=== PATIENT | female | born 1990 | race Caucasian/White ===

== ENCOUNTER 2020-06-29 07:53 | Outpatient (REF) | payer BC, SELFPAY ==
[2020-06-29 08:28] LABS: MANUAL DIFF FLAG NO
[2020-06-29 08:33] LABS: Glucose Urine UA NEG (NEG); Leukocyte Esterase Urine NEG (NEG); Nitrite Urine NEG (NEG); Urine Blood TRACE (NEG); Urine Ketones NEG (NEG); Urine Protein NEG (NEG-TRACE)
[2020-06-29 08:34] LABS: Appearance Urine HAZY; Color Urine YELLOW
[2020-06-29 08:39] LABS: Basophils Percent Auto 0.6 % (0-2); Eosinophils Absolute Auto 0.1 X10*3/uL (0.0-0.4); Eosinophils Percent Auto 2.7 % (0-4); Hematocrit 38.8 % (37-47); Hemoglobin 12.9 g/dl (12.0-16.0); Imm Gran Abs Auto 0.02 X10*3/uL (0.00-0.03); Imm Gran Pct Auto 0.4 % (0.0-0.4); Lymphocytes Absolute Auto 1.2 X10*3/uL (1.2-4.9); Lymphocytes Percent Auto 22.5 % (20-40); Mean Corpuscular HGB Conc 33.2 g/dl (31.0-35.0); Mean Corpuscular Hemoglobin 28.4 pg (27.0-33.0); Mean Corpuscular Volume 85.5 fL (80-98); Mean Platelet Volume 10.8 fL (9.4-12.3); Monocytes Absolute Auto 0.4 X10*3/uL (0.1-1.2); Monocytes Percent Auto 7.3 % (2-11); Neutrophils Absolute Auto 3.5 X10*3/uL (2.0-8.3); Neutrophils Percent Auto 66.5 % (45-73); Platelet Count 290 X10*3/uL (160-400); Red Blood Count 4.54 X10*6/uL (4.20-5.50); Red Cell Distribution Width 13.2 % (11.0-16.0); White Blood Count 5.2 X10*3/uL (4.8-10.8)
[2020-06-29 08:57] LABS: Squamous Epithelial Cell Urine 1+ /LPF; WBC Urine 0 /HPF (0-4)
[2020-06-29 09:33] LABS: Alanine Aminotransferase 11 U/L (0-31); Albumin Level 4.4 g/dL (3.5-5.0); Alkaline Phosphatase 84 U/L (39-117); Anion Gap 14 (12-20); Aspartate Amino Transferase 15 U/L (5-31); Bilirubin Total 0.4 mg/dL (0.0-1.0); Blood Urea Nitrogen 12 mg/dL (9-16); Calcium 9.1 mg/dL (8.4-10.2); Carbon Dioxide 24 mmol/L (22-29); Chloride 105 mmol/L (96-108); Cholesterol 206 mg/dL; Estimated Glomerular Filt Rate > 60; Glucose Fasting 87 mg/dL (60-99); HDL Cholesterol 47 mg/dL; LDL Cholesterol Calculated 144 mg/dl; Potassium 4.1 mmol/L (3.3-5.1); Sodium 139 mmol/L (135-145); TSH reflex Free T4 0.78 uIU/mL (0.32-4.0); Total Protein 7.4 g/dL (6.5-8.0); Triglycerides 77 mg/dL
[2020-06-29 11:40] LABS: Erythrocyte Sedimentation Rate 9 MM/HR (0-20)
== END 2020-06-29 07:54 | disposition home or self-care (01) ==
LOC: HO.LAB 07:53
PROVIDERS: PCP Internal Medicine; Visit Provider Internal Medicine
DX: Z00.00 Encounter for general adult medical examination without abnormal findings (principal); O99.345 Other mental disorders complicating the puerperium; G43.909 Migraine, unspecified, not intractable, without status migrainosus; F53.0 Postpartum depression
CPT/HCPCS: 36415; 80053; 80061; 81001; 84443; 85025; 85652

== ENCOUNTER 2020-07-20 12:48 | Outpatient (REF) | payer BC, SELFPAY | END 2020-07-20 12:49 | disposition home or self-care (01) | LOC: HO.LAB 12:48 | PROVIDERS: Visit Provider Internal Medicine | DX: Z20.822 Contact with and (suspected) exposure to COVID-19 (principal) | CPT/HCPCS: 36415; C9803; U0003; U0005 ==

== ENCOUNTER 2021-08-02 08:14 | Outpatient (REF) | payer BC, SELFPAY ==
[2021-08-02 08:38] LABS: MANUAL DIFF FLAG NO
[2021-08-02 08:55] LABS: Basophils Percent Auto 0.7 % (0-2); Eosinophils Absolute Auto 0.2 X10*3/uL (0.0-0.4); Eosinophils Percent Auto 3.8 % (0-4); Hematocrit 41.8 % (37.0-47.0); Hemoglobin 13.5 g/dl (12.0-16.0); Imm Gran Abs Auto 0.01 X10*3/uL (0.00-0.03); Imm Gran Pct Auto 0.2 % (0.0-0.4); Lymphocytes Absolute Auto 1.4 X10*3/uL (1.2-4.9); Lymphocytes Percent Auto 33.1 % (20-40); Mean Corpuscular HGB Conc 32.3 g/dl (31.0-35.0); Mean Corpuscular Hemoglobin 27.4 pg (27.0-33.0); Mean Platelet Volume 10.2 fL (9.4-12.3); Monocytes Absolute Auto 0.4 X10*3/uL (0.1-1.2); Monocytes Percent Auto 9.8 % (2-11); Neutrophils Absolute Auto 2.2 x10*3/uL (2.0-8.3); Neutrophils Percent Auto 52.4 % (45-73); Platelet Count 267 X10*3/uL (160-400); Red Blood Count 4.92 X10*6/uL (4.20-5.50); Red Cell Distribution Width 13.2 % (11.0-16.0); White Blood Count 4.2 X10*3/uL (4.8-10.8)
[2021-08-02 09:21] LABS: Alanine Aminotransferase 19 U/L (0-31); Albumin Level 4.5 g/dL (3.5-5.0); Alkaline Phosphatase 101 U/L (39-117); Anion Gap 11 (12-20); Aspartate Amino Transferase 20 U/L (5-31); Bilirubin Total 0.4 mg/dL (0.0-1.0); Blood Urea Nitrogen 11 mg/dL (9-16); Calcium 9.6 mg/dL (8.4-10.2); Carbon Dioxide 27 mmol/L (22-29); Chloride 105 mmol/L (96-108); Cholesterol 198 mg/dL; Estimated Glomerular Filt Rate > 60; Glucose Fasting 91 mg/dL (60-99); HDL Cholesterol 43 mg/dL; LDL Cholesterol Calculated 136 mg/dl; Potassium 4.6 mmol/L (3.3-5.1); Sodium 138 mmol/L (135-145); Total Protein 7.7 g/dL (6.5-8.0); Triglycerides 98 mg/dL
[2021-08-02 09:43] LABS: TSH reflex Free T4 1.38 uIU/mL (0.32-4.0); Vitamin D 25-OH Total 26.9 ng/mL (>30)
[2021-08-02 11:20] LABS: Appearance Urine HAZY; Color Urine YELLOW; Glucose Urine UA NEG (NEG); Leukocyte Esterase Urine NEG (NEG); Nitrite Urine NEG (NEG); PH 6.5 (5.0-8.0); UACC Culture Trigger NO; Urine Blood 2+ (NEG); Urine Ketones NEG (NEG); Urine Protein NEG (NEG-TRACE)
[2021-08-02 11:35] LABS: Bacteria Urine 3+ /LPF; Renal Epithelial Cells Urine 1+ /LPF; Squamous Epithelial Cell Urine 3+ /LPF
== END 2021-08-02 08:15 | disposition home or self-care (01) ==
LOC: HO.LAB 08:14
PROVIDERS: PCP Internal Medicine; Visit Provider Internal Medicine
DX: Z00.00 Encounter for general adult medical examination without abnormal findings (principal); E55.9 Vitamin D deficiency, unspecified
CPT/HCPCS: 36415; 80053; 80061; 81001; 81003; 82306; 84443; 85025

== ENCOUNTER 2022-12-16 08:11 | Outpatient (REF) | payer BC, SELFPAY ==
[2022-12-16 08:20] LABS: MANUAL DIFF FLAG NO
[2022-12-16 09:09] LABS: Basophils Percent Auto 0.6 % (0-2); Eosinophils Absolute Auto 0.2 X10*3/uL (0.0-0.4); Hematocrit 39.8 % (37.0-47.0); Hemoglobin 13.1 g/dl (12.0-16.0); Imm Gran Abs Auto 0.06 X10*3/uL (0.00-0.03); Lymphocytes Absolute Auto 1.5 X10*3/uL (1.2-4.9); Mean Corpuscular HGB Conc 32.9 g/dl (31.0-35.0); Mean Corpuscular Hemoglobin 27.5 pg (27.0-33.0); Mean Corpuscular Volume 83.6 fL (80.0-98.0); Mean Platelet Volume 10.3 fL (9.4-12.3); Monocytes Absolute Auto 0.5 X10*3/uL (0.1-1.2); Monocytes Percent Auto 7.1 % (2-11); Neutrophils Absolute Auto 4.1 x10*3/uL (2.0-8.3); Neutrophils Percent Auto 65.3 % (45-73); Platelet Count 308 X10*3/uL (160-400); Red Blood Count 4.76 X10*6/uL (4.20-5.50); Red Cell Distribution Width 13.9 % (11.0-16.0); White Blood Count 6.3 X10*3/uL (4.8-10.8)
[2022-12-16 09:11] LABS: Appearance Urine Cloudy; Color Urine Yellow; Glucose Urine UA Negative (Negative); Leukocyte Esterase Urine Negative (Negative); Nitrite Urine Negative (Negative); Specific Gravity - Urine >= 1.030 (1.005-1.025); Urine Blood Negative (Negative); Urine Ketones Trace mg/dL (Negative); Urine Protein Trace mg/dL (Neg-Trace)
[2022-12-16 09:42] LABS: Alanine Aminotransferase 19 U/L (0-31); Albumin Level 4.4 g/dL (3.5-5.0); Alkaline Phosphatase 86 U/L (39-117); Anion Gap 12 (12-20); Aspartate Amino Transferase 23 U/L (5-31); Bilirubin Total 0.4 mg/dL (0.0-1.0); Blood Urea Nitrogen 11 mg/dL (9-16); Calcium 9.4 mg/dL (8.4-10.2); Carbon Dioxide 26 mmol/L (22-29); Chloride 106 mmol/L (96-108); Cholesterol 272 mg/dL; Estimated Glomerular Filt Rate > 60; Glucose Fasting 85 mg/dL (60-99); HDL Cholesterol 54 mg/dL; LDL Cholesterol Calculated 189 mg/dl; Potassium 3.9 mmol/L (3.3-5.1); Sodium 140 mmol/L (135-145); Total Protein 7.9 g/dL (6.5-8.0); Triglycerides 146 mg/dL
[2022-12-16 10:02] LABS: TSH reflex Free T4 1.25 uIU/mL (0.32-4.0); Vitamin D 25-OH Total 32.5 ng/mL (>30)
== END 2022-12-16 08:12 | disposition home or self-care (01) ==
LOC: HO.LAB 08:11
PROVIDERS: PCP Internal Medicine; Visit Provider Internal Medicine
DX: Z00.00 Encounter for general adult medical examination without abnormal findings (principal); E78.00 Pure hypercholesterolemia, unspecified; E55.9 Vitamin D deficiency, unspecified; R30.0 Dysuria
CPT/HCPCS: 36415; 80053; 80061; 81003; 82306; 84443; 85025

== ENCOUNTER 2022-12-19 15:32 | Outpatient (AMB) | payer BC, SELFPAY ==
[2022-12-19 15:34] VITALS: BP 110/70; PULSE 78; O2SAT 98; BMI 25.2
--- NOTE | 2022-12-19 15:34 | MHC.PC.OV ---
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: No Accompanied by: Self / Same As Patient Allergies neomycin [From Neosporin ([id number])] Allergy (Unknown, Verified 02/27/23 08:04) Rash polymyxin B [From Neosporin ([id number])] Allergy (Unknown, Verified 02/27/23 08:04) Rash bacitracin Adverse Reaction (Unknown, Verified 02/27/23 08:04) rash Medication List - Last Reconciled 12/19/22 by Shimon Reeder MD [id number] (Emgality Pen) 120 mg subcut .monthly 3 months norethindrone ac-eth estradiol 1-20 mg-mcg 1 tab PO DAILY sertraline 150 mg (1.5 x 100 mg) PO DAILY 90 days zolmitriptan TAKE 1 TAB AT ONSET OF HEADACHE IF NO RELIEF, MAY REPEAT 1 TAB AFTER AT LEAST 2 HOURS 30 days Tobacco use date assessed: 12/19/22 Dental Screening Dental Screen Date: 12/19/22 Did you have a dental visit in the last 12 months?: Yes Did you have a dental problem in the last 6 months where you did not have access to dental care?: No Was dental information given to patient?: Patient has dentist HPI hyperlipidemia, insomnia HPI Details Patient comes in today for her follow up visit States that she feels okay but continues to report difficulty sleeping as well as increasing fatigue and daytime somnolence lately She denies any headaches or dizziness - states that her migraine headaches have been well-controlled on her current Rx so far Denies any chest pains, no SOB No nausea/vomiting, no abdominal pain No change in bowel habits noted Had her follow up labs done a few days ago - to discuss her results [facility] Medical History Anxiety Depression Migraine depression Pure hypercholesterolemia Vitamin D deficiency Surgical History History of wisdom tooth extraction Family History (Updated 02/27/23 @ 08:07 by Viviane Galaviz [facility]) Father Hyperlipidemia Hypertension Diabetes Mother Hypertension Maternal Grandfather No problems noted. Sister In good health Son In good health Brother In good health Maternal Grandmother Breast cancer Other Substance abuse Social History (Updated 02/27/23 @ 08:07 by Viviane Galaviz [facility]) Housing: Apartment Alcohol intake: current Alcohol intake frequency: holidays/special occasions only Patient Tobacco Use Status: Never used Tobacco e-Cigarette/Vaping Use: Never Used Second Hand Smoke Exposure: No service: No Current occupational status: employed Current occupation: [employer] Cognitive needs: No Hearing needs: No Vision needs: No Questionnaire PHQ-9 Over the last 2 weeks, how often have you been bothered by any of the following problems? 1. Little interest or pleasure in doing things: not at all 2. Feeling down, depressed, or hopeless: not at all 3. Trouble falling or staying asleep, or sleeping too much: not at all 4. Feeling tired or having little energy: not at all 5. Poor appetite or overeating: not at all 6. Feeling bad about yourself - or that you are a failure or have let yourself or your family down: not at all 7. Trouble concentrating on things, such as reading the newspaper or watching television: not at all 8. Moving or speaking so slowly that other people could have noticed. Or the opposite - being so fidgety or restless that you have been moving around a lot more than usual: not at all 9. Thoughts that you would be better off or of hurting yourself in some way: not at all Total score: 0 Depression Screening Interpretation: Negative (Rx helping) 79425 - PHQ-9 Billing: Yes Source: Developed by Drs. Juan Pak, Sanaz Foster, Sree Morley and colleagues, with an educational leo from [employer]. Thrive Questionnaire Date Thrive assessed: 12/19/22 I am a: Patient What is your living situation today?: I have a steady place to live Within the past 12 months, did the food you bought not last and you didn't have the money to get more?: Never true Within the past 12 months, did you worry whether your food would run out before you got money to buy more?: Never true Do you have trouble paying for medicines?: No Do you have trouble getting transportation to medical appointments?: No Do you have trouble paying your heating and electricity bill?: No Do you have trouble taking care of your child, family member or friend?: No Do you have trouble with day-to-day activities such as bathing, preparing meals, shopping, managing finances, etc.?: No Are you currently unemployed and looking for a job?: No Are you interested in more education?: No Please select the resources that you would like help with: None Currently or been in a relationship where the following occur: no concerns reported AUDIT C Alcohol Use Questionnaire (AUDIT-C) 1. How often do you have a drink containing alcohol?: Monthly or less 2. How many drinks containing alcohol do you have on a typical day when you are drinking?: 1 or 2 3. How often do you have six or more drinks on one occasion?: Never Total Score: 1 Score Reviewed/Action Taken: Yes FAN-7 AMB Questionnaire FAN-7 Date FAN - 7 assessed: 12/19/22 Feeling nervous, anxious, or on edge: 0 = Not at all Not being able to stop or control worryin = Not at all Worrying too much about different things: 0 = Not at all Trouble relaxin = Not at all Being so restless that it is hard to sit still: 0 = Not at all Becoming easily annoyed or irritable: 0 = Not at all Feeling afraid as if something awful might happen: 0 = Not at all Total FAN-7 score (0-4 normal; 5-9 mild; 10-14 moderate; 15-21 severe): 0 Source: Developed by Drs. Juan Pak, Sanaz Foster, Sree Morley and colleagues, with an educational leo from [employer]. Review of Systems Const Reports daytime sleepiness (frequent), Reports difficulty sleeping, Reports fatigue (increased lately), Denies fever(s) and Denies headache(s) (controlled on Rx) Eyes Denies blurry vision ENT Denies dysphagia, Denies dizziness, Denies otalgia, Denies headache(s) (controlled on Rx), Denies neck pain, Denies odynophagia and Denies sore throat Card Denies chest pain, Denies rapid heart rate, Denies irregular heart rhythm, Denies palpitations and Denies dyspnea Resp Denies chest congestion, Denies cough, Denies dyspnea and Denies wheezing GI Denies abdominal pain, Denies constipation, Denies dysphagia, Denies heartburn, Denies diarrhea, Denies nausea, Denies odynophagia and Denies vomiting Denies urinary frequency, Denies dysuria and Denies urinary urgency Musc Denies back pain, Denies arthralgias and Denies neck pain Skin/Breast Denies rash Neuro Denies dizziness, Denies headache(s) (controlled on Rx) and Denies paresthesias Psych Denies anxiety Endo Reports fatigue (increased lately) and Denies palpitations Aller/Immun Denies wheezing Physical exam (Primary Care) Vital Signs: Last Vital Signs Pulse 78 12/19/22 15:34 BP 110/70 12/19/22 15:34 Pulse Ox 98 12/19/22 15:34 Oxygen Delivery Method Room Air 12/19/22 15:34 BMI result Body Mass Index 25.2 Tobacco/Smoking Status: Tobacco use Status Tobacco use date assessed 12/19/22 12/19/22 15:40 Patient Tobacco Use Status Never used Tobacco 12/19/22 15:40 e-Cigarette/Vaping Use Never Used 12/19/22 15:40 PHQ-9: PHQ-9 Score PHQ-9: Total score 0 12/19/22 19:13 Depression Screening Interpretation: Negative (Rx helping) Thrive Assessment: Date of Thrive Assessment Date Thrive assessed 12/19/22 12/19/22 15:40 Currently or been in a relationship where the following occur: no concerns reported Const General: no acute distress and alert HENMT Ears: TM's normal bilaterally and EAC's normal Throat: Yes posterior oropharynx normal and Yes tonsils normal (no TP congestion) Neck Neck: Yes no lymphadenopathy and Yes supple Thyroid: Thyroid normal Resp Auscultation: clear to auscultation bilaterally, no rales and no wheezes Cardio Rate: regular rate Rhythm: regular rhythm Heart sounds: no murmurs GI Palpation (GI): Soft to palpation and nontender Auscultation: normal bowel sounds General: Yes no CVA tenderness Back/Spine/Pelvis Back: no CVA tenderness Thoracic/Lumbar Spine: thoracic and lumbar spine normal to inspection Skin Rashes: no rashes Extrem General: Yes no clubbing, cyanosis or edema Results Reviewed Results Reviewed: Laboratory Tests 08/02/21 12/16/22 12/16/22 08:37 06:20 08:16 WBC 6.3 Hgb 13.1 Hct 39.8 Plt Count 308 Sodium Potassium Creatinine Estimated GFR Fasting Glucose Calcium AST ALT Triglycerides Cholesterol 198 LDL Cholesterol, Calc 136 HDL Cholesterol 25-OH Vitamin D Total TSH Ur Specific [place] >= 1.030 H Urine Protein Trace Urine Glucose (UA) Negative Urine Blood Negative 12/16/22 08:16 WBC Hgb Hct Plt Count Sodium 140 Potassium 3.9 Creatinine 0.74 Estimated GFR > 60 Fasting Glucose 85 Calcium 9.4 AST 23 ALT 19 Triglycerides 146 Cholesterol 272 LDL Cholesterol, Calc 189 HDL Cholesterol 54 25-OH Vitamin D Total 32.5 TSH 1.25 Ur Specific [place] Urine Protein Urine Glucose (UA) Urine Blood Assessment and Plan Assessment & Plan (1) Pure hypercholesterolemia: Code(s): E78.00 - Pure hypercholesterolemia, unspecified Plan: Results of her labs done a few days ago reviewed and discussed with patient - cautioned that her cholesterol levels have increased again from last year and her LDL cholesterol is now at 189 mg/dl Reinforced low cholesterol diet; discussed option of pharmacotherapy to help get her cholesterol down if diet modification alone is not enough although her high cholesterol appears to be mostly diet-related Will recheck her labs and fasting lipids in 6 months for follow up (2) Migraine: Comment: Has been tried on prophylactic Rx in the past (Amitriptyline, beta blockers, nerve blocks) with little success; doing much better currently on Emgality Code(s): G43.909 - Migraine, unspecified, not intractable, without status migrainosus Qualifiers: Intractability: not intractable Migraine type: unspecified Status migrainosus presence: without status migrainosus Qualified Code(s): G43.909 - Migraine, unspecified, not intractable, without status migrainosus Plan: Has been doing well on Emgality for a while now - continue Emgality 120 mg SQ every 3 months and Zolmitriptan 5 mg PRN Reinforced avoidance of any potential migraine triggers (3) Vitamin D deficiency: Code(s): E55.9 - Vitamin D deficiency, unspecified Plan: Corrected on her recent labs - continue OTC Vitamin D3 1000 units QD (4) Daytime somnolence: Code(s): R40.0 - Somnolence Plan: Patient scored 11 on her [place] Sleepiness Scale done in the office today Will refer her to Sleep Medicine for further evaluation and management and for consideration for a sleep study if appropriate (5) Insomnia: Code(s): G47.00 - Insomnia, unspecified Qualifiers: Insomnia type: unspecified Qualified Code(s): G47.00 - Insomnia, unspecified Plan: Sleep hygiene reinforced Patient's trouble sleeping were previously thought to be mostly related to her child's sleeping problems and they did consult with a sleep specialist to help address this She still prefers not to take any Rx sleep aid for fear of being knocked out too much as she needs to be able to wake up to help or attend to her child when needed; has tried taking OTC Melatonin PRN with no significant results (6) Anxiety: Code(s): F41.9 - Anxiety disorder, unspecified Plan: Was doing well on Sertraline 150 mg QD previously although she has been off of this for a few months now after she self-discontinued the Rx on her own (7) Depression: Code(s): F32.A - Depression, unspecified Qualifiers: Depression Type: depression Qualified Code(s): O99.345 - Other mental disorders complicating the puerperium; F53.0 - depression Plan: (+) Hx of depression Was on Sertraline 150 mg QD but states that she self-discontinued Rx a few months ago and has been doing well OFF her Rx so far Plan Follow up in 6 months Orders: Orders Comprehensive [place]. Panel Fast 6 Months E78.00 - Pure hypercholesterolemia, unspecified Lipid Panel 6 Months E78.00 - Pure hypercholesterolemia, unspecified Referrals Sleep Medicine Referral R53.83 - Other fatigue, R40.0 - Somnolence Coding Level of Care Code Est Pt Level 4 (92618) Diagnoses Pure hypercholesterolemia E78.00 Migraine without status migrainosus, not intractable, unspecified migraine type G43.909 Intractability: not intractable Migraine type: unspecified Status migrainosus presence: without status migrainosus Vitamin D deficiency E55.9 Daytime somnolence R40.0 Insomnia, unspecified type G47.00 Insomnia type: unspecified Anxiety F41.9 depression O99.345; F53.0 Depression Type: depression
== END 2022-12-19 16:27 | disposition home or self-care (01) ==
PROVIDERS: PCP Internal Medicine; Visit Provider Internal Medicine
DX: E78.00 Pure hypercholesterolemia, unspecified (principal); G43.909 Migraine, unspecified, not intractable, without status migrainosus; E55.9 Vitamin D deficiency, unspecified; R40.0 Somnolence; G47.00 Insomnia, unspecified; F41.9 Anxiety disorder, unspecified; O99.345 Other mental disorders complicating the puerperium; F53.0 Postpartum depression
CPT/HCPCS: 99214

== ENCOUNTER 2023-02-27 08:01 | Outpatient (AMB) | payer BC, SELFPAY ==
--- NOTE | 2023-02-27 08:03 | MHC.OFFVIS ---
Intake Vital Signs 02/27/23 08:07 Height 5 ft 7 in Weight 162 lb BMI 25.4 BP 110/62 Blood Pressure Location Lt brachial Position Sitting Pulse 84 Pulse Source Pulse Oximeter Pulse Oximetry (%) 98 Intake Visit Reasons: INP-Fatigue/Somnolence - LVM Intake Note: NPV for Fatigue and Somlolence Educational Fundraising Director Required: No Allergies neomycin [From Neosporin ([id number])] Allergy (Unknown, Verified 02/27/23 08:04) Rash polymyxin B [From Neosporin ([id number])] Allergy (Unknown, Verified 02/27/23 08:04) Rash bacitracin Adverse Reaction (Unknown, Verified 02/27/23 08:04) rash HPI HPI Comments History of Present Illness Details 32 y/o female patient presents for new in-person visit for sleep consultation. Pt reports snoring, non refreshing sleep and daytime tiredness and sleepiness. She feels very tired and exhausted no matter how much sleep she gets. She almost sleeps 6-8 hrs at night, but wakes up frequently and tosses and turns. Pt reports family hx of sleep apnea, her sister and uncle has sleep apnea and uses CPAP. Sleep questionnaire: Have you ever been diagnosed with a sleep disorder? No. Have you ever had a sleep study in the past? No. Have you ever been treated for a sleep disorder? No. Do you take medications for a sleep disorder? No. Do you snore? Yes. Do you wake up gasping at night? No. Do you have episodes of apneas? No. If yes, are they witnessed? No. Do you have episodes of nocturnal chest pain or dyspnea? No. Do you have difficulty initiating sleep? On occasion. Do you have difficulty maintaining sleep? Wakes up a lot, tosses and turns. Do you wake up tired? Yes. Do you have headaches upon awakening? Yes, sometimes. Do you wake up with dry mouth or throat? Yes. Do you have GERD? Yes, sometimes. Do you have nocturia? Not really. Do you have nocturnal leg cramps? No. Do you have symptoms of restless legs? Yes, sometimes. Do you act out your dreams? Yes, occaisonally. Sleep hygiene questionnaire: What is your usual sleep routine? Usual bedtime is at 10-11 pm; Usual wake up time is at 6:15 am. Do you take naps? Yes, sometimes. Is your sleep environment cool, dark, and quiet? Yes. Do you exercise? No. Do you take caffeine or other stimulants? A cup of coffee or one energy drink. Do you use electronics in bed? Yes. What is your work schedule? 8 am to 4: 30 am. Hypersomnolence questionnaire: Do you have daytime tiredness or fatigue? Yes. Do you easily fall asleep when inactive? Yes. Have you ever had episodes of sudden weakness? No. Have you ever had episodes of sudden weakness associated with strong emotions? No. PFSH Medical History Anxiety Depression Migraine depression Pure hypercholesterolemia Vitamin D deficiency Surgical History History of wisdom tooth extraction Family History (Updated 02/27/23 @ 08:07 by Viviane Galaviz CMA) Father Hyperlipidemia Hypertension Diabetes Mother Hypertension Maternal Grandfather No problems noted. 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 Cognitive needs: No Hearing needs: No Vision needs: No Review of Systems Const All systems reviewed & are unremarkable except as noted in HPI and below ENT Reports Normal hearing present Neuro Reports Normal hearing present Physical Exam Vital Signs: Last Vital Signs Pulse 84 02/27/23 08:07 BP 110/62 02/27/23 08:07 Pulse Ox 98 02/27/23 08:07 BMI result Body Mass Index 25.4 Const General: cooperative Nutritional Appearance: overweight Orientation/consciousness: patient oriented x3 HEENT Throat: Yes other (mallampati grade 2) Neck Neck: Yes full ROM and Yes supple Resp Effort & Inspection: normal respiratory effort and able to speak in complete sentences Neuro General: patient oriented x3, gait normal and no focal motor deficits Cranial nerves: Yes Bilaterally intact EOM present, Yes Normal facial strength present, Yes Midline tongue present, Yes Symmetric palate elevation present, Yes Normal hearing present, Yes Ability to bilaterally rotate head present and Yes Ability to bilaterally elevate shoulders present Cognition (Neuro): normal cognition Gait exam (Neuro): Normal gait present Motor exam (neuro): 5/5 motor strength present throughout, Pronator motor function not present and no tremor noted Psych Appearance: grossly normal Mental Status: mental status grossly normal Speech and movement: Normal speech and movement present Affect: normal affect Attitude: cooperative Assessment & Plan Assessment & Plan (1) Snoring: Code(s): R06.83 - Snoring (2) Daytime somnolence: Code(s): R40.0 - Somnolence Plan Pt is advised to undergo home sleep study to assess for sleep apnea. Will f/u with pt after study to discuss results and appropriate treatment options. Sleep hygiene education provided, advised patient to limit electronic use before bedtime. Daily walking 3o min recommended. Pt to call with any worsening concerns or questions. Orders: Orders RT home sleep study Today R06.83 - Snoring, R40.0 - Somnolence Coding Level of Care Code New Pt Level 3 (35003) Diagnoses Snoring R06.83 Daytime somnolence R40.0
[2023-02-27 08:07] VITALS: BP 110/62; PULSE 84; O2SAT 98; BMI 25.4
== END 2023-02-27 08:32 | disposition home or self-care (01) ==
PROVIDERS: PCP Internal Medicine; Visit Provider Nurse Practitioner Family
DX: R06.83 Snoring (principal); R40.0 Somnolence
CPT/HCPCS: 99203

== ENCOUNTER → 2023-02-27 08:01 | Outpatient (BNVA) | payer BC, SELFPAY | PROVIDERS: PCP Internal Medicine; Visit Provider Nurse Practitioner Family ==

== ENCOUNTER → 2023-04-10 16:00 | Outpatient (REF) | payer BC, SELFPAY | LOC: HO.SL 16:00 | PROVIDERS: PCP Internal Medicine; Visit Provider Nurse Practitioner Family | DX: R06.83 Snoring (principal); R40.0 Somnolence | CPT/HCPCS: 95806 ==

== ENCOUNTER → 2023-04-10 16:00 | Outpatient (BNV) | payer BC, SELFPAY | PROVIDERS: PCP Internal Medicine; Visit Provider Psychiatry & Neurology Neurology | DX: R06.83 Snoring (principal) | CPT/HCPCS: 95806 ==

== ENCOUNTER 2023-06-08 08:16 | Outpatient (REF) | payer BC, SELFPAY ==
[2023-06-08 09:39] LABS: Alanine Aminotransferase 16 U/L (0-31); Albumin Level 4.4 g/dL (3.5-5.0); Alkaline Phosphatase 78 U/L (39-117); Anion Gap 13 (12-20); Aspartate Amino Transferase 17 U/L (5-31); Bilirubin Total 0.3 mg/dL (0.0-1.0); Blood Urea Nitrogen 9 mg/dL (9-16); Calcium 9.7 mg/dL (8.4-10.2); Carbon Dioxide 25 mmol/L (22-29); Chloride 106 mmol/L (96-108); Cholesterol 201 mg/dL (<200); Estimated Glomerular Filt Rate > 60; Glucose Fasting 93 mg/dL (60-99); HDL Cholesterol 44 mg/dL (>40); LDL Cholesterol Calculated 138 mg/dL (<100); Potassium 4.2 mmol/L (3.3-5.1); Sodium 140 mmol/L (135-145); Total Protein 7.6 g/dL (6.5-8.0); Triglycerides 96 mg/dL (<150)
== END 2023-06-08 08:17 | disposition home or self-care (01) ==
LOC: HO.LAB 08:16
PROVIDERS: PCP Internal Medicine; Visit Provider Internal Medicine
DX: E78.00 Pure hypercholesterolemia, unspecified (principal)
CPT/HCPCS: 36415; 80053; 80061

== ENCOUNTER 2023-06-21 08:52 | Outpatient (AMB) | payer BC, SELFPAY ==
--- NOTE | 2023-06-21 08:58 | MHC.PC.OV ---
Vital Signs 06/21/23 09:00 Height 5 ft 7 in Weight 158 lb 2 oz BMI 24.8 BP 116/70 Blood Pressure Location Lt brachial Position Sitting Pulse 83 Pulse Source Pulse Oximeter Pulse Oximetry (%) 97 Oxygen Delivery Method Room Air Intake Visit Reasons: 6 month f/u Manufacturing Technologist Required: No Accompanied by: Self / Same As Patient Allergies neomycin [From Neosporin ([id number])] Allergy (Unknown, Verified 06/21/23 09:10) Rash polymyxin B [From Neosporin ([id number])] Allergy (Unknown, Verified 06/21/23 09:10) Rash bacitracin Adverse Reaction (Unknown, Verified 06/21/23 09:10) rash Medication List - Last Reconciled 06/21/23 by Shimon Reeder MD [id number] (Emgality Pen) 120 mg subcut .monthly 3 months norethindrone ac-eth estradiol 1-20 mg-mcg 1 tab PO DAILY zolmitriptan TAKE 1 TAB AT ONSET OF HEADACHE IF NO RELIEF, MAY REPEAT 1 TAB AFTER AT LEAST 2 HOURS 30 days Tobacco use date assessed: 06/21/23 Dental Screening Dental Screen Date: 06/21/23 Did you have a dental visit in the last 12 months?: Yes Did you have a dental problem in the last 6 months where you did not have access to dental care?: No Was dental information given to patient?: Patient has dentist HPI 6 month f/u HPI Details Patient comes in today for her follow up visit States that she feels okay but has been experiencing a recurrent right-sided low back pain with radiation of the pain down her right thigh and also at times medially into the right groin/inguinal area for the past month or so States that the symptoms would also tend to flare up when she has been sitting for a while and she would then have to get up and move around and stretch her right leg to get comfortable She denies any recent injury or trauma to her lower back and right hip and relates (+) Hx of lower back injuries but recalls that she was told when she was a teenager that she may have some problems with her SI joint She denies any headaches or dizziness - states that her migraine headaches are well-controlled Denies any chest pains, no SOB No nausea/vomiting, no abdominal pain No change in bowel habits noted Had her follow up labs done a couple of weeks ago - to discuss her results [facility] Medical History Vitamin D deficiency Depression Anxiety Pure hypercholesterolemia depression Migraine Surgical History History of wisdom tooth extraction Family History Father Hyperlipidemia Hypertension Diabetes Mother Hypertension Maternal Grandfather No problems noted. Sister In good health Son In good health Brother In good health Maternal Grandmother Breast cancer Other Substance abuse Social History Housing: Apartment Alcohol intake: current Alcohol intake frequency: holidays/special occasions only Patient Tobacco Use Status: Never used Tobacco e-Cigarette/Vaping Use: Never Used Second Hand Smoke Exposure: No service: No Current occupational status: employed Current occupation: [employer] Cognitive needs: No Hearing needs: No Vision needs: No Questionnaire PHQ-9 Over the last 2 weeks, how often have you been bothered by any of the following problems? 1. Little interest or pleasure in doing things: not at all 2. Feeling down, depressed, or hopeless: not at all 3. Trouble falling or staying asleep, or sleeping too much: not at all 4. Feeling tired or having little energy: not at all 5. Poor appetite or overeating: not at all 6. Feeling bad about yourself - or that you are a failure or have let yourself or your family down: not at all 7. Trouble concentrating on things, such as reading the newspaper or watching television: not at all 8. Moving or speaking so slowly that other people could have noticed. Or the opposite - being so fidgety or restless that you have been moving around a lot more than usual: not at all 9. Thoughts that you would be better off or of hurting yourself in some way: not at all Total score: 0 Depression Screening Interpretation: Negative (is on Rx) Depression Screening Done: Yes 36960 - PHQ-9 Billing: Yes Source: Developed by Drs. Juan Pak, Sanaz B.Sree Marroquin and colleagues, with an educational leo from [employer]. Thrive Questionnaire Date Thrive assessed: 06/21/23 I am a: Patient What is your living situation today?: I have a steady place to live Within the past 12 months, did the food you bought not last and you didn't have the money to get more?: Never true Within the past 12 months, did you worry whether your food would run out before you got money to buy more?: Never true Do you have trouble paying for medicines?: No Do you have trouble getting transportation to medical appointments?: No Do you have trouble paying your heating and electricity bill?: No Do you have trouble taking care of your child, family member or friend?: No Do you have trouble with day-to-day activities such as bathing, preparing meals, shopping, managing finances, etc.?: No Are you currently unemployed and looking for a job?: No Are you interested in more education?: No Please select the resources that you would like help with: None Currently or been in a relationship where the following occur: no concerns reported THRIVE Score: 0 AUDIT C Alcohol Use Questionnaire (AUDIT-C) 1. How often do you have a drink containing alcohol?: Monthly or less 2. How many drinks containing alcohol do you have on a typical day when you are drinking?: 1 or 2 3. How often do you have six or more drinks on one occasion?: Never Total Score: 1 Score Reviewed/Action Taken: Yes FAN-7 AMB Questionnaire FAN-7 Date FAN - 7 assessed: 06/21/23 Feeling nervous, anxious, or on edge: 0 = Not at all Not being able to stop or control worryin = Not at all Worrying too much about different things: 0 = Not at all Trouble relaxin = Not at all Being so restless that it is hard to sit still: 0 = Not at all Becoming easily annoyed or irritable: 0 = Not at all Feeling afraid as if something awful might happen: 0 = Not at all Total FAN-7 score (0-4 normal; 5-9 mild; 10-14 moderate; 15-21 severe): 0 Source: Developed by Drs. Juan Pak, Sree Mills and colleagues, with an educational leo from [employer]. Review of Systems Const Denies chills, Denies fatigue, Denies fever(s) and Denies headache(s) ENT Denies dysphagia, Denies dizziness, Denies otalgia, Denies headache(s), Denies neck pain, Denies odynophagia and Denies sore throat Card Denies chest pain, Denies palpitations and Denies dyspnea Resp Denies cough and Denies dyspnea GI Denies abdominal pain, Denies constipation, Denies dysphagia, Denies heartburn, Denies diarrhea, Denies nausea, Denies odynophagia and Denies vomiting Denies difficulty voiding, Denies nocturia, Denies dysuria and Denies urinary urgency Musc Reports back pain (recurrent, over the right lower back for the past month), Denies neck pain and Reports radiating pain into limb (into the right thigh and medially into the right groin area) Skin/Breast Denies rash Neuro Denies dizziness and Denies headache(s) Endo Denies fatigue and Denies palpitations Physical exam (Primary Care) Vital Signs: Last Vital Signs Pulse 83 06/21/23 09:00 BP 116/70 06/21/23 09:00 Pulse Ox 97 06/21/23 09:00 Oxygen Delivery Method Room Air 06/21/23 09:00 BMI result Body Mass Index 24.8 Tobacco/Smoking Status: Tobacco use Status Tobacco use date assessed 06/21/23 06/21/23 09:05 Patient Tobacco Use Status Never used Tobacco 06/21/23 09:05 e-Cigarette/Vaping Use Never Used 06/21/23 09:05 PHQ-9: PHQ-9 Score PHQ-9: Total score 0 06/21/23 09:05 Depression Screening Interpretation: Negative (is on Rx) Thrive Assessment: Date of Thrive Assessment Date Thrive assessed 06/21/23 06/21/23 09:05 Currently or been in a relationship where the following occur: no concerns reported Const General: no acute distress and alert Neck Neck: Yes no lymphadenopathy and Yes supple Resp Auscultation: clear to auscultation bilaterally, no rales and no wheezes Cardio Rate: regular rate Rhythm: regular rhythm Heart sounds: no murmurs GI Palpation (GI): Soft to palpation and nontender Auscultation: normal bowel sounds General: Yes no CVA tenderness Back/Spine/Pelvis Back: no CVA tenderness Thoracic/Lumbar Spine: paraspinal muscle tenderness on the right in the lower lumbar (just at the upper border of the right iliac crest) and No lumbar spinal tenderness Sacroiliac joints: on the right by compression of iliac crest Skin Rashes: no rashes Extrem General: Yes no clubbing, cyanosis or edema Results Reviewed Results Reviewed: Laboratory Tests 12/16/22 12/16/22 12/16/22 08:16 08:16 08:16 Sodium Potassium Creatinine Estimated GFR Fasting Glucose Calcium AST ALT Triglycerides 146 Cholesterol 272 LDL Cholesterol, Calc 189 HDL Cholesterol 54 06/08/23 06/08/23 06/08/23 08:33 08:33 08:33 Sodium 140 Potassium 4.2 Creatinine 0.74 Estimated GFR > 60 Fasting Glucose 93 Calcium 9.7 AST 17 ALT Triglycerides Cholesterol 201 H LDL Cholesterol, Calc 138 H HDL Cholesterol 44 06/08/23 08:33 Sodium Potassium Creatinine Estimated GFR Fasting Glucose Calcium AST ALT 16 Triglycerides 96 Cholesterol LDL Cholesterol, Calc HDL Cholesterol Assessment and Plan Assessment & Plan (1) Pure hypercholesterolemia: Code(s): E78.00 - Pure hypercholesterolemia, unspecified Plan: Results of her labs done a couple of weeks ago reviewed and discussed with patient - advised that her cholesterol levels have all improved significantly from previous although they are still slightly high and need to improve further Reinforced low cholesterol diet Will recheck her labs and fasting lipids in 6 months for follow up (2) Migraine: Comment: Has been tried on prophylactic Rx in the past (Amitriptyline, beta blockers, nerve blocks) with little success; doing much better currently on Emgality Code(s): G43.909 - Migraine, unspecified, not intractable, without status migrainosus Qualifiers: Migraine type: unspecified Status migrainosus presence: without status migrainosus Intractability: not intractable Qualified Code(s): G43.909 - Migraine, unspecified, not intractable, without status migrainosus Plan: Her migraine headaches have been well-controlled on Emgality for a while now - continue Emgality 120 mg SQ every 3 months and Zolmitriptan 5 mg PRN Reinforced avoidance of any potential migraine triggers (3) Vitamin D deficiency: Code(s): E55.9 - Vitamin D deficiency, unspecified Plan: Continue OTC Vitamin D3 1000 units QD (4) Right-sided low back pain with right-sided sciatica: Code(s): M54.41 - Lumbago with sciatica, right side Qualifiers: Chronicity: acute Qualified Code(s): M54.41 - Lumbago with sciatica, right side Plan: Will send her for x-rays of the lumbar spine and SI joint for further evaluation Due to the presentation of her symptoms (pain radiating medially into the right inguinal area), will also send her for x-rays of the right hip She is advised that we will check back with her once the results of all her x-rays are available and if there are no significant findings on her x-rays, physical therapy would be the next logical recommendation to help her address her symptoms (5) Insomnia: Code(s): G47.00 - Insomnia, unspecified Qualifiers: Insomnia type: unspecified Qualified Code(s): G47.00 - Insomnia, unspecified Plan: Sleep hygiene reinforced (6) Anxiety: Code(s): F41.9 - Anxiety disorder, unspecified Plan: Was doing well on Sertraline 150 mg QD previously but she self-discontinued the Rx a while back and has been doing well OFF her Rx since - does not need any Rx or intervention at this time (7) Depression: Code(s): F32.A - Depression, unspecified Qualifiers: Depression Type: depression Qualified Code(s): O99.345 - Other mental disorders complicating the puerperium; F53.0 - depression Plan: (+) Hx of depression, which appears resolved now Was on Sertraline 150 mg QD but she self-discontinued Rx sometime last year and has been doing well OFF her Rx so far Plan To return in 6 months for her next annual physical examination Orders: Orders XR lumbar spine 2-3V Today M54.41 - Lumbago with sciatica, right side XR hip RT min 2V Today M25.551 - Pain in right hip Complete Blood Count Auto Diff 6 Months D64.9 - Anemia, unspecified, Z00.00 - Encounter for general adult medical examination without abnormal findings Lipid Panel 6 Months E78.00 - Pure hypercholesterolemia, unspecified, Z00.00 - Encounter for general adult medical examination without abnormal findings XR sacroiliac joint min 3V Today M54.41 - Lumbago with sciatica, right side Comprehensive Homer. Panel Fast 6 Months E78.00 - Pure hypercholesterolemia, unspecified, Z00.00 - Encounter for general adult medical examination without abnormal findings TSH reflex Free T4 6 Months E78.00 - Pure hypercholesterolemia, unspecified, Z00.00 - Encounter for general adult medical examination without abnormal findings UA CC w/rflx Micro + Cult 6 Months R30.0 - Dysuria, Z00.00 - Encounter for general adult medical examination without abnormal findings Vitamin D 25-OH Total 6 Months E55.9 - Vitamin D deficiency, unspecified, Z00.00 - Encounter for general adult medical examination without abnormal findings Coding Level of Care Code Est Pt Level 4 (54866) Diagnoses Pure hypercholesterolemia E78.00 Migraine without status migrainosus, not intractable, unspecified migraine type G43.909 Migraine type: unspecified Status migrainosus presence: without status migrainosus Intractability: not intractable Vitamin D deficiency E55.9 Acute right-sided low back pain with right-sided sciatica M54.41 Chronicity: acute Insomnia, unspecified type G47.00 Insomnia type: unspecified Anxiety F41.9 depression O99.345; F53.0 Depression Type: depression
[2023-06-21 09:00] VITALS: BP 116/70; PULSE 83; O2SAT 97; BMI 24.8
== END 2023-06-21 09:26 | disposition home or self-care (01) ==
PROVIDERS: PCP Internal Medicine; Visit Provider Internal Medicine
DX: E78.00 Pure hypercholesterolemia, unspecified (principal); G43.909 Migraine, unspecified, not intractable, without status migrainosus; E55.9 Vitamin D deficiency, unspecified; M54.41 Lumbago with sciatica, right side; G47.00 Insomnia, unspecified; F41.9 Anxiety disorder, unspecified; O99.345 Other mental disorders complicating the puerperium; F53.0 Postpartum depression
CPT/HCPCS: 99214

== ENCOUNTER 2023-06-26 08:19 | Outpatient (AMB) | payer BC, SELFPAY ==
--- NOTE | 2023-06-26 08:21 | MHC.OFFVIS ---
Intake Vital Signs 06/26/23 08:54 Height 5 ft 7 in Weight 157 lb 6 oz BMI 24.6 BP 115/64 Blood Pressure Location Rt brachial Position Sitting Pulse 74 Pulse Oximetry (%) 96 Oxygen Delivery Method Room Air Intake Visit Reasons: 4 mnts f/u- LVM Intake Note: Patient presents for 4 month f/u. Allergies neomycin [From Neosporin ([id number])] Allergy (Unknown, Verified 06/26/23 08:38) Rash polymyxin B [From Neosporin ([id number])] Allergy (Unknown, Verified 06/26/23 08:38) Rash bacitracin Adverse Reaction (Unknown, Verified 06/26/23 08:38) rash HPI HPI Comments History of Present Illness Details 32 y/o female patient presents for follow up of sleep study. The home sleep study result was mild degree of snoring. There is no evidence of sleep apnea. The AHI was less than 1/hr and oxygen allan was 89%. Pt reports she slept well during the sleep study. Pt reports she still has difficulty staying sleep and daytime sleepiness. She sleeps 6-8 hrs at night, but wakes up frequently and tosses and turns. [facility] Medical History Vitamin D deficiency Depression Anxiety Pure hypercholesterolemia depression Migraine Surgical History History of wisdom tooth extraction Family History Father Hyperlipidemia Hypertension Diabetes Mother Hypertension Maternal Grandfather No problems noted. 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 Cognitive needs: No Hearing needs: No Vision needs: No Review of Systems Const All systems reviewed & are unremarkable except as noted in HPI and below ENT Reports Normal hearing present Neuro Reports Normal hearing present Physical Exam Vital Signs: Last Vital Signs Pulse 74 06/26/23 08:54 BP 115/64 06/26/23 08:54 Pulse Ox 96 06/26/23 08:54 Oxygen Delivery Method Room Air 06/26/23 08:54 BMI result Body Mass Index 24.6 Const General: cooperative Nutritional Appearance: overweight Orientation/consciousness: patient oriented x3 HEENT Throat: Yes other (mallampati grade 2) Neck Neck: Yes full ROM and Yes supple Resp Effort & Inspection: normal respiratory effort and able to speak in complete sentences Neuro General: patient oriented x3, gait normal and no focal motor deficits Cranial nerves: Yes Bilaterally intact EOM present, Yes Normal facial strength present, Yes Midline tongue present, Yes Symmetric palate elevation present, Yes Normal hearing present, Yes Ability to bilaterally rotate head present and Yes Ability to bilaterally elevate shoulders present Cognition (Neuro): normal cognition Gait exam (Neuro): Normal gait present Motor exam (neuro): 5/5 motor strength present throughout, Pronator motor function not present and no tremor noted Psych Appearance: grossly normal Mental Status: mental status grossly normal Speech and movement: Normal speech and movement present Affect: normal affect Attitude: cooperative Assessment & Plan Assessment & Plan (1) Insomnia: Code(s): G47.00 - Insomnia, unspecified Qualifiers: Insomnia type: unspecified Qualified Code(s): G47.00 - Insomnia, unspecified (2) Daytime somnolence: Code(s): R40.0 - Somnolence Plan Sleep hygiene education provided. Advised patient to try Calm sleep gummy (magnesium and melatonin) and practice sleep hygiene. Pt wants to hold for in lab sleep study for further evaluation now, wants to try sleep hygiene and sleep supplement. She will call for follow up as needed. Coding Level of Care Code Est Pt Level 3 (04534) Diagnoses Insomnia, unspecified type G47.00 Insomnia type: unspecified Daytime somnolence R40.0
[2023-06-26 08:54] VITALS: BP 115/64; PULSE 74; O2SAT 96; BMI 24.6
== END 2023-06-26 09:40 | disposition home or self-care (01) ==
PROVIDERS: PCP Internal Medicine; Visit Provider Nurse Practitioner Family
DX: G47.00 Insomnia, unspecified (principal); R40.0 Somnolence
CPT/HCPCS: 99213

== ENCOUNTER → 2023-06-26 08:19 | Outpatient (BNVA) | payer BC, SELFPAY | PROVIDERS: PCP Internal Medicine; Visit Provider Nurse Practitioner Family ==

== ENCOUNTER 2023-07-04 07:50 | Outpatient (REF) | payer BC, SELFPAY ==
--- NOTE | ~2023-07-04 | XR_ITS ---
EXAMINATION: XR LUMBOSACRAL SPINE CLINICAL INFORMATION: Lumbago with sciatica COMPARISON: None available. TECHNIQUE: Three views of the lumbosacral spine. FINDINGS: The vertebral bodies and posterior elements are normal. The disc spaces are preserved and the vertebral alignment is normal. The paraspinal soft tissues are normal. XR/XR lumbar spine 2-3V IMPRESSION: Unremarkable examination.
--- NOTE | ~2023-07-04 | XR_ITS ---
EXAMINATION: XR HIP, RIGHT CLINICAL INFORMATION: Right hip pain COMPARISON: None available. TECHNIQUE: Two views of the right hip. FINDINGS: No fracture. Alignment is anatomic. Hip joint space is maintained. Soft tissues are unremarkable. XR/XR hip RT min 2V IMPRESSION: Normal right hip.
--- NOTE | ~2023-07-04 | XR_ITS ---
EXAMINATION: XR SACROILIAC JOINTS CLINICAL INFORMATION: Lumbago with sciatica on the right. COMPARISON: None available. TECHNIQUE: 3 views of the sacroiliac joints. FINDINGS: Some minimal sclerotic changes are seen in the left SI joint. Bones and soft tissues are otherwise normal. No fracture. Alignment is anatomic. Sacroiliac joint spaces are well-maintained without erosions or fusion. XR/XR sacroiliac joint min 3V IMPRESSION: Minimal sclerotic changes of the left SI joint.
== END 2023-07-04 07:51 | disposition home or self-care (01) ==
LOC: HO.XRAY 07:50
PROVIDERS: PCP Internal Medicine; Visit Provider Internal Medicine
DX: M54.41 Lumbago with sciatica, right side (principal); M25.551 Pain in right hip
CPT/HCPCS: 72100; 72202; 73502

== ENCOUNTER 2023-12-08 14:27 | Outpatient (AMB) | payer BC, SELFPAY ==
[2023-12-08 14:33] VITALS: BP 110/70; PULSE 74; TEMP 37.1; O2SAT 98; BMI 23.6
--- NOTE | 2023-12-08 14:33 | MHC.OFFWIV ---
Intake Vital Signs 12/08/23 14:33 Height 5 ft 7 in Weight 151 lb BMI 23.6 BP 110/70 Blood Pressure Location Rt brachial Position Sitting Pulse 74 Pulse Source Pulse Oximeter Temp 98.8 F Temp Source Oral Pulse Oximetry (%) 98 Intake Visit Reasons: EP ?allergic reaction eyes Intake Note: pt c/o itchy red eyes, watery discharge, has been ongoing for weeks Patient Tobacco Use Status: Never used Tobacco Allergies neomycin [From Neosporin ([id number])] Allergy (Unknown, Verified 12/08/23 14:33) Rash polymyxin B [From Neosporin ([id number])] Allergy (Unknown, Verified 12/08/23 14:33) Rash bacitracin Adverse Reaction (Unknown, Verified 12/08/23 14:33) rash Do you need a note to return to daycare/school/sports/work: No HPI HPI Comments History of Present Illness Details Patient is a 32-year-old female complaining of bilateral dry skin and itching on her eyes, she states that the left 1 was really puffy this morning and her vision was a little bit blurry but it has since gone down and her vision is back to normal. She states she has been using Aquaphor on the skin as well as cortisone cream but she is nervous about using to much of the cortisone cream. [facility] Medical History Vitamin D deficiency Depression Anxiety Pure hypercholesterolemia depression Migraine Surgical History History of wisdom tooth extraction Family History Father Hyperlipidemia Hypertension Diabetes Mother Hypertension Maternal Grandfather No problems noted. 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 Cognitive needs: No Hearing needs: No Vision needs: No Review of Systems Const All systems reviewed & are unremarkable except as noted in HPI and below Physical Exam Vital Signs: Last Vital Signs Temp 98.8 F 12/08/23 14:33 Pulse 74 12/08/23 14:33 BP 110/70 12/08/23 14:33 Pulse Ox 98 12/08/23 14:33 BMI result Body Mass Index 23.6 Const General: cooperative, healthy appearing, comfortable, no acute distress and well developed Orientation/consciousness: patient oriented x3 Limitations: no limitations Eyes Alignment and Position: alignment normal and position normal Periorbital: periorbital findings abnormal bilateral (Slight) periorbital swelling Eyelids: Yes eyelid abnormality (Scaly, slight erythema bilaterally) Conjunctivae: conjunctivae normal Sclerae: sclerae normal Pupils: Equal, round and reactive pupils present EOM: EOMs intact bilaterally Neuro General: patient oriented x3 Cranial nerves: Yes Equal, round and reactive pupils present Assessment & Plan Assessment & Plan (1) Allergic (intrinsic) eczema: Code(s): L20.84 - Intrinsic (allergic) eczema Plan: We will send referral to [facility], in the meanwhile recommended trying palatine drops as well as continuing Aquaphor and cortisone cream very sparingly. Plan see above Orders: Referrals Dermatology Referral L20.84 - Intrinsic (allergic) eczema Coding Level of Care Code Est Pt Level 3 (24696) Diagnoses Allergic (intrinsic) eczema L20.84
== END 2023-12-08 15:00 | disposition home or self-care (01) ==
PROVIDERS: PCP Internal Medicine; Visit Provider Physician Assistant
DX: L20.84 Intrinsic (allergic) eczema (principal)
CPT/HCPCS: 99213

== ENCOUNTER 2023-12-26 08:06 | Outpatient (AMB) | payer BC, SELFPAY ==
--- NOTE | 2023-12-26 08:07 | AM.OFFWIN_ITS ---
Intake Vital Signs 12/26/23 08:08 Height 5 ft 7 in Weight 152 lb BMI 23.8 BP 128/82 Blood Pressure Location Rt brachial Position Sitting Pulse 86 Pulse Source Pulse Oximeter Temp 98.9 F Temp Source Oral Pulse Oximetry (%) 98 Oxygen Delivery Method Room Air Intake Visit Reasons: EP UTI? Intake Note: pt c/o urinary urgency and discomfort, burning. Started yesterday Patient Tobacco Use Status: Never used Tobacco Allergies neomycin [From Neosporin ([id number])] Allergy (Unknown, Verified 12/26/23 08:08) Rash polymyxin B [From Neosporin ([id number])] Allergy (Unknown, Verified 12/26/23 08:08) Rash bacitracin Adverse Reaction (Unknown, Verified 12/26/23 08:08) rash Do you need a note to return to daycare/school/sports/work: No HPI HPI Comments History of Present Illness Details Patient is a 33-year-old female complaining of 2 days of increased frequency, urgency and burning with urination. She denies any fevers or acute low back pain. She does state she has chronic low back pain. She did state she saw a little bit of blood when she wiped yesterday but nothing since then. FORMERLY [facility], [facility] Medical History Vitamin D deficiency Depression Anxiety Pure hypercholesterolemia depression Migraine Surgical History History of wisdom tooth extraction Family History Father Hyperlipidemia Hypertension Diabetes Mother Hypertension Maternal Grandfather No problems noted. 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 Cognitive needs: No Hearing needs: No Vision needs: No Review of Systems Const All systems reviewed & are unremarkable except as noted in HPI and below Physical Exam Vital Signs: Last Vital Signs Temp 98.9 F 12/26/23 08:08 Pulse 86 12/26/23 08:08 BP 128/82 12/26/23 08:08 Pulse Ox 98 12/26/23 08:08 Oxygen Delivery Method Room Air 12/26/23 08:08 BMI result Body Mass Index 23.8 Const General: cooperative, healthy appearing, comfortable, no acute distress and well developed Orientation/consciousness: patient oriented x3 Limitations: no limitations HEENT Head: Yes normal to inspection Eyes General: appearance normal, both eyes and all related structures Neck Neck: Yes normal visual inspection and Yes full ROM Resp Effort & Inspection: normal respiratory effort and able to speak in complete sentences Skin General skin exam: no rashes or lesions noted Neuro General: patient oriented x3 Extrem General: Yes normal to inspection Results AMB Urinalysis, Automated UA Leukoctes 500 Gustavo/uL Last Edit by Alejandro Piper CMA on 12/26/23 08:18 UA Nitrite Negative Last Edit by Alejandro Piper CMA on 12/26/23 08:18 UA Urobilinogen 0.2 mg/dL Last Edit by Alejandro Piper CMA on 12/26/23 08:18 UA Protein 15 mg/dL Last Edit by Alejandro Piper CMA on 12/26/23 08:18 UA pH 7.0 Last Edit by Alejandro Piper CMA on 12/26/23 08:18 UA Blood 25 Gaurang/uL Last Edit by Alejandro Piper CMA on 12/26/23 08:18 UA Specific [place] 1.015 Last Edit by Alejandro Piper CMA on 12/26/23 08:18 UA Ketone Negative Last Edit by Alejandro Piper CMA on 12/26/23 08:18 UA Bilirubin 0 mg/dL Last Edit by Alejandro Piper CMA on 12/26/23 08:18 UA Glucose 0 mg/dL Last Edit by Alejandro Piper CMA on 12/26/23 08:18 Results Reviewed Results Reviewed: Laboratory Last Values Urine pH (Auto) 7.0 12/26/23 08:17 Specific [place] (Auto) 1.015 12/26/23 08:17 Urine Protein (Auto) 15 mg/dL 12/26/23 08:17 Glucose (UA)(Auto) 0 mg/dL 12/26/23 08:17 Urine Ketones (Auto) Negative 12/26/23 08:17 Urine Blood (Auto) 25 Gaurang/uL 12/26/23 08:17 Urine Nitrite (Auto) Negative 12/26/23 08:17 Urine Bilirubin (Auto) 0 mg/dL 12/26/23 08:17 Urine Urobilinogen (Auto) 0.2 mg/dL 12/26/23 08:17 Leukocyte Esterase (Auto) 500 Gustavo/uL 12/26/23 08:17 Assessment & Plan Assessment & Plan (1) UTI (urinary tract infection): Code(s): N39.0 - Urinary tract infection, site not specified Qualifiers: Urinary tract infection type: acute cystitis Hematuria presence: without hematuria Qualified Code(s): N30.00 - Acute cystitis without hematuria Plan: UA positive for leukocyte esterase 3+, blood 1+, negative nitrites, sent prescription to pharmacy Plan See above Orders: Orders AMB Urinalysis Automated Today Z13.9 - Encounter for screening, unspecified Medications: New cefuroxime axetil 500 mg PO Q12H 10 tabs 0RF Coding Level of Care Code Est Pt Level 3 (69597) Diagnoses Acute cystitis without hematuria N30.00 Urinary tract infection type: acute cystitis Hematuria presence: without hematuria
[2023-12-26 08:08] VITALS: BP 128/82; PULSE 86; TEMP 37.2; O2SAT 98; BMI 23.8
== END 2023-12-26 08:48 | disposition home or self-care (01) ==
PROVIDERS: PCP Internal Medicine; Visit Provider Physician Assistant
DX: Z13.9 Encounter for screening, unspecified (principal); N30.00 Acute cystitis without hematuria
CPT/HCPCS: 81003; 99213

== ENCOUNTER 2024-01-09 10:10 | Outpatient (AMB) | payer BC, SELFPAY ==
[2024-01-09 10:16] VITALS: BP 112/68; PULSE 79; O2SAT 99; BMI 23.7
--- NOTE | 2024-01-09 10:16 | A.OFFPC_ITS ---
Vital Signs 01/09/24 10:16 Height 5 ft 7 in Weight 151 lb 2 oz BMI 23.7 BP 112/68 Blood Pressure Location Lt brachial Position Sitting Pulse 79 Pulse Source Pulse Oximeter Pulse Oximetry (%) 99 Oxygen Delivery Method Room Air Intake Visit Reasons: ANNUAL Operations Analyst Required: No Accompanied by: Self / Same As Patient Allergies neomycin [From Neosporin ([id number])] Allergy (Unknown, Verified 01/09/24 10:54) Rash polymyxin B [From Neosporin ([id number])] Allergy (Unknown, Verified 01/09/24 10:54) Rash bacitracin Adverse Reaction (Unknown, Verified 01/09/24 10:54) rash Medication List - Last Reconciled 01/09/24 by Shimon Reeder MD zolmitriptan TAKE 1 TAB AT ONSET OF HEADACHE IF NO RELIEF, MAY REPEAT 1 TAB AFTER AT LEAST 2 HOURS 30 days Tobacco use date assessed: 01/09/24 Dental Screening Dental Screen Date: 01/09/24 Did you have a dental visit in the last 12 months?: Yes Did you have a dental problem in the last 6 months where you did not have access to dental care?: No Was dental information given to patient?: Patient has dentist HPI ANNUAL HPI Details Patient comes in today for her annual physical examination States that she feels okay Relates that she stopped taking her Emgality and her control Rx recently as she and her are now again trying to conceive She has not noticed any increase or changes in her headaches so far since she stopped taking Emgality She denies any dizziness Denies any chest pains, no SOB No nausea/vomiting, no abdominal pain No change in bowel habits noted She denies any acute urinary symptoms She still has trouble sleeping at night (wakes up frequently after a couple of hours of deep sleep) Was seen by sleep medicine and had a home sleep study done earlier this year that came back negative for SEFERINO States that she has since tried taking some OTC Melatonin a few times but did not find them helpful Adds that her previous complaint of recurrent right-sided low back pain that radiates into her right thigh has gotten a lot better lately although she still feels them every now and then She was sent for x-rays of the hip, lumbar spine and SI joints earlier this year and her x-rays have all come back normal She still goes to [facility] regularly for her annual gynecology exam and pap smear - states that she was last seen by them earlier this year but did not have to get a pap smear this year COUNT INCLUDES THE [facility] Medical History Vitamin D deficiency Depression Anxiety Pure hypercholesterolemia depression Migraine Surgical History History of wisdom tooth extraction Family History Father Hyperlipidemia Hypertension Diabetes Mother Hypertension Maternal Grandfather No problems noted. Sister In good health Son In good health Brother In good health Maternal Grandmother Breast cancer Other Substance abuse Social History Housing: Apartment Alcohol intake: current Alcohol intake frequency: holidays/special occasions only Patient Tobacco Use Status: Never used Tobacco e-Cigarette/Vaping Use: Never Used Second Hand Smoke Exposure: No service: No Current occupational status: employed Current occupation: [employer] Cognitive needs: No Hearing needs: No Vision needs: No Questionnaire PHQ-9 Over the last 2 weeks, how often have you been bothered by any of the following problems? 1. Little interest or pleasure in doing things: not at all 2. Feeling down, depressed, or hopeless: not at all 3. Trouble falling or staying asleep, or sleeping too much: not at all 4. Feeling tired or having little energy: several days 5. Poor appetite or overeating: not at all 6. Feeling bad about yourself - or that you are a failure or have let yourself or your family down: not at all 7. Trouble concentrating on things, such as reading the newspaper or watching t elevision: not at all 8. Moving or speaking so slowly that other people could have noticed. Or the opposite - being so fidgety or restless that you have been moving around a lot more than usual: not at all 9. Thoughts that you would be better off or of hurting yourself in some way: not at all Total score: 1 Depression Screening Interpretation: Negative Depression Screening Done: Yes 25742 - PHQ-9 Billing: Yes Source: Developed by Drs. Juan Pak, Sanaz Foster, Sree Morley and colleagues, with an educational leo from [employer]. Thrive Questionnaire Date Thrive assessed: 01/09/24 I am a: Patient What is your living situation today?: I have a steady place to live Within the past 12 months, did the food you bought not last and you didn't have the money to get more?: Never true Within the past 12 months, did you worry whether your food would run out before you got money to buy more?: Never true Do you have trouble paying for medicines?: No Do you have trouble getting transportation to medical appointments?: No Do you have trouble paying your heating and electricity bill?: No Do you have trouble taking care of your child, family member or friend?: No Do you have trouble with day-to-day activities such as bathing, preparing meals, shopping, managing finances, etc.?: No Are you currently unemployed and looking for a job?: No Are you interested in more education?: No Please select the resources that you would like help with: None Currently or been in a relationship where the following occur: No concerns reported THRIVE Score: 0 AUDIT C Alcohol Use Questionnaire (AUDIT-C) 1. How often do you have a drink containing alcohol?: Monthly or less 2. How many drinks containing alcohol do you have on a typical day when you are drinking?: 1 or 2 3. How often do you have six or more drinks on one occasion?: Never Total Score: 1 Score Reviewed/Action Taken: Yes FAN-7 AMB Questionnaire FAN-7 Date FAN - 7 assessed: 01/09/24 Feeling nervous, anxious, or on edge: 1 = Several days Not being able to stop or control worryin = Several days Worrying too much about different things: 1 = Several days Trouble relaxin = Several days Being so restless that it is hard to sit still: 0 = Not at all Becoming easily annoyed or irritable: 1 = Several days Feeling afraid as if something awful might happen: 0 = Not at all Total FAN-7 score (0-4 normal; 5-9 mild; 10-14 moderate; 15-21 severe): 5 Source: Developed by Sanaz [place] Kurt Kroenke and colleagues, with an educational leo from [employer]. Review of Systems Const Denies chills, Reports difficulty sleeping, Denies fatigue, Denies fever(s), Reports headache(s) (occasional (migraine) - better controlled) and Denies malaise Eyes Denies blurry vision, Denies change in vision, Denies irritation and Denies itchy eyes ENT Denies dysphagia, Denies dizziness, Denies otalgia, Reports headache(s) (occasional (migraine) - better controlled), Denies nasal congestion, Denies neck pain, Denies odynophagia, Denies sinus pain and Denies sore throat Card Denies chest pain, Denies rapid heart rate, Denies irregular heart rhythm, Denies palpitations and Denies dyspnea Resp Denies chest congestion, Denies cough, Denies dyspnea and Denies wheezing GI Denies abdominal pain, Denies bloating, Denies constipation, Denies dysphagia, Denies heartburn, Denies diarrhea, Denies nausea, Denies odynophagia and Denies vomiting Denies hematuria, Denies urinary frequency, Denies dysuria, Denies urinary incontinence and Denies urinary urgency Musc Reports back pain (occasionally - in the right lower back (see HPI)), Denies arthralgias, Denies joint swelling, Denies muscle weakness and Denies neck pain Skin/Breast Denies breast pain, Denies breast mass, Denies change in pigmentation, Denies lesions, Denies rash and Denies unusual bruising Neuro Denies dizziness, Reports headache(s) (occasional (migraine) - better controlled) and Denies paresthesias Psych Denies anxiety and Denies depression Endo Denies fatigue and Denies palpitations Jj/Lymph Denies easy bruising Aller/Immun Denies itchy eyes and Denies wheezing Physical exam (Primary Care) Vital Signs: Last Vital Signs Pulse 79 01/09/24 10:16 BP 112/68 01/09/24 10:16 Pulse Ox 99 01/09/24 10:16 Oxygen Delivery Method Room Air 01/09/24 10:16 BMI result Body Mass Index 23.7 Tobacco/Smoking Status: Tobacco use Status Tobacco use date assessed 01/09/24 01/09/24 10:20 Patient Tobacco Use Status Never used Tobacco 01/09/24 10:20 e-Cigarette/Vaping Use Never Used 01/09/24 10:20 PHQ-9: PHQ-9 Score PHQ-9: Total score 1 01/09/24 10:20 Depression Screening Interpretation: Negative Thrive Assessment: Date of Thrive Assessment Date Thrive assessed 01/09/24 01/09/24 10:20 Currently or been in a relationship where the following occur: No concerns reported Const General: no acute distress, alert and awake Orientation/consciousness: patient oriented x3 HENMT Head: Yes normocephalic and Yes atraumatic Ears: external ears normal, TM's normal bilaterally and EAC's normal General nose exam: No nasal discharge present Face and sinus: Yes normal facial exam and Yes sinuses nontender Teeth and gingiva: dentition normal Throat: Yes posterior oropharynx normal and Yes tonsils normal (no TP congestion) Eyes Eyelids: Yes eyelids normal Conjunctivae: conjunctivae normal Pupils: Equal, round and reactive pupils present EOM: EOMs intact bilaterally Neck Neck: Yes no lymphadenopathy and Yes supple Thyroid: Thyroid normal Resp Auscultation: clear to auscultation bilaterally, no rales and no wheezes Cardio Rate: regular rate Rhythm: regular rhythm Heart sounds: no murmurs GI Palpation (GI): Soft to palpation, nontender and No hepatosplenomegaly present Auscultation: normal bowel sounds General: Yes no CVA tenderness Back/Spine/Pelvis Back: no CVA tenderness Cervical Spine: No Cervical spine tenderness Thoracic/Lumbar Spine: paraspinal muscle tenderness (mild, over the right lower lumbar region) on the right, No thoracic spinal tenderness and No lumbar spinal tenderness Sacroiliac joints: bilaterally nontender Skin Lesions: no lesions Rashes: no rashes Neuro General: patient oriented x3, moves all extremities, no focal motor deficits and CN's II-XI intact bilaterally Cranial nerves: Yes Equal, round and reactive pupils present Cognition (Neuro): normal cognition Gait exam (Neuro): Normal gait present Extrem General: Yes no clubbing, cyanosis or edema Assessment and Plan Assessment & Plan (1) Annual physical exam: Code(s): Z00.00 - Encounter for general adult medical examination without abnormal findings Plan: Check labs She is currently up-to-date with her annual gynecology exam and pap smear (goes to [facility]) (2) Pure hypercholesterolemia: Code(s): E78.00 - Pure hypercholesterolemia, unspecified Plan: Reinforced low cholesterol diet She is advised that her cholesterol levels when last checked a few months ago have all improved slightly again from previous but they are still slightly high and need to improve further Will recheck her labs and fasting lipids now for follow up (3) Migraine: Comment: Has been tried on prophylactic Rx in the past (Amitriptyline, beta blockers, nerve blocks) with little success; doing much better currently on Emgality Code(s): G43.909 - Migraine, unspecified, not intractable, without status migrainosus Qualifiers: Migraine type: unspecified Status migrainosus presence: without status migrainosus Intractability: not intractable Qualified Code(s): G43.909 - Migraine, unspecified, not intractable, without status migrainosus Plan: Her migraine headaches have been well-controlled on Emgality 120 mg SQ Q 3 months for a while now but she had to come off her Rx recently as she and her are now trying to conceive again Notes that her headaches have not gotten any worse since she stopped taking her Emgality a while back Continue Zolmitriptan 5 mg PRN for now Have advised her that if she wants to, she can try taking some OTC Vitamin B2, which are sometimes being used by neurologists as well to help reduce frequency and intensity of migraine headaches and these can be taken even during if it works Reinforced again avoidance of any potential migraine triggers to help minimize flare ups of her headaches (4) Vitamin D deficiency: Code(s): E55.9 - Vitamin D deficiency, unspecified Plan: Continue OTC Vitamin D3 1000 units QD (5) Right-sided low back pain with right-sided sciatica: Code(s): M54.41 - Lumbago with sciatica, right side Qualifiers: Chronicity: acute Qualified Code(s): M54.41 - Lumbago with sciatica, right side Plan: X-rays of the lumbar spine, right hip and SI joints done a few months ago all came back mostly unremarkable Have discussed with patient that at this time, a likely cause of her on and off right lower back symptoms may be her posture as well as her daily activities Patient states that her symptoms have overall been a lot better than they were a few months ago Have advised that she can look up some exercises for her lower back and hips that she can do regularly to help manage her symptoms better Advised that if her symptoms continue to bother her a lot, can recommend her to get some physical therapy and consulation done then (6) Insomnia: Code(s): G47.00 - Insomnia, unspecified Qualifiers: Insomnia type: unspecified Qualified Code(s): G47.00 - Insomnia, unspecified Plan: Sleep hygiene reinforced States that she has taken OTC Melatonin a few times but did not find them helpful Have discussed with patient that at this point, her problems with sleeping may have something to do with the fact that she has a (small) child at home and s ubconsciously, she is not able to sleep too deeply (or too well) as she tends to wake up at the slightest noise that her child makes, and that other than taking something to help relax her (which she prefers not to do) there may not be much else we can do for her sleep at this time (until her kids are all grown up...) (7) Anxiety: Code(s): F41.9 - Anxiety disorder, unspecified Plan: She was doing well on Sertraline 150 mg QD previously but she self-discontinued the Rx a while back and feels that she has been doing well OFF her Rx since and does not need any Rx or intervention at this time (8) Depression: Code(s): F32.A - Depression, unspecified Qualifiers: Depression Type: depression Qualified Code(s): O99.345 - Other mental disorders complicating the puerperium; F53.0 - depression Plan: (+) Hx of depression, which appears resolved now She was on Sertraline 150 mg QD but she self-discontinued Rx sometime last year and has been doing well OFF her Rx so far Plan Follow up in 6 months Orders: Orders Lipid Panel Today E78.00 - Pure hypercholesterolemia, unspecified, Z00.00 - Encounter for general adult medical examination without abnormal findings Comprehensive [place]. Panel Fast Today E78.00 - Pure hypercholesterolemia, unspecified, Z00.00 - Encounter for general adult medical examination without abnormal findings TSH reflex Free T4 Today E78.00 - Pure hypercholesterolemia, unspecified, Z00.00 - Encounter for general adult medical examination without abnormal findings Vitamin D 25-OH Total Today E55.9 - Vitamin D deficiency, unspecified, Z00.00 - Encounter for general adult medical examination without abnormal findings Complete Blood Count Auto Diff Today D64.9 - Anemia, unspecified, Z00.00 - Encounter for general adult medical examination without abnormal findings UA CC w/rflx Micro + Cult Today R30.0 - Dysuria, Z00.00 - Encounter for general adult medical examination without abnormal findings Coding Level of Care Code Est Pt Prev Care [id number]([id number]) Diagnoses Annual physical exam Z00.00 Pure hypercholesterolemia E78.00 Migraine without status migrainosus, not intractable, unspecified migraine type G43.909 Migraine type: unspecified Status migrainosus presence: without status migrainosus Intractability: not intractable Vitamin D deficiency E55.9 Acute right-sided low back pain with right-sided sciatica M54.41 Chronicity: acute Insomnia, unspecified type G47.00 Insomnia type: unspecified Anxiety F41.9 depression O99.345; F53.0 Depression Type: depression
== END 2024-01-09 11:04 | disposition home or self-care (01) ==
PROVIDERS: PCP Internal Medicine; Visit Provider Internal Medicine
DX: Z00.00 Encounter for general adult medical examination without abnormal findings (principal); E78.00 Pure hypercholesterolemia, unspecified; G43.909 Migraine, unspecified, not intractable, without status migrainosus; E55.9 Vitamin D deficiency, unspecified; M54.41 Lumbago with sciatica, right side; G47.00 Insomnia, unspecified; F41.9 Anxiety disorder, unspecified; O99.345 Other mental disorders complicating the puerperium; F53.0 Postpartum depression
CPT/HCPCS: 99395

== ENCOUNTER 2024-03-13 08:03 | Outpatient (AMB) | payer BC, SELFPAY ==
[2024-03-13 08:21] VITALS: BP 120/70; PULSE 86; O2SAT 99
--- NOTE | 2024-03-13 08:21 | AM.OFFWIN_ITS ---
Intake Vital Signs 03/13/24 08:21 Height 5 ft 7 in BP 120/70 Blood Pressure Location Rt brachial Position Sitting Pulse 86 Pulse Source Pulse Oximeter Pulse Oximetry (%) 99 Oxygen Delivery Method Room Air Intake Visit Reasons: EP UTI? Intake Note: pt is here for UTI, states on and off feeling of urgency and unable to completely void Patient Tobacco Use Status: Never used Tobacco Allergies neomycin [From Neosporin ([id number])] Allergy (Unknown, Verified 03/13/24 08:22) Rash polymyxin B [From Neosporin ([id number])] Allergy (Unknown, Verified 03/13/24 08:22) Rash bacitracin Adverse Reaction (Unknown, Verified 03/13/24 08:22) rash Do you need a note to return to daycare/school/sports/work: No HPI HPI Comments History of Present Illness Details Patient is a 33-year-old female complaining of on and off feeling of urgency and unable to completely void, bladder pressure and a twinge at the end of urination. She denies any low back pain or fevers. She tells me that she is currently trying to get and she is in the window where they have tried but it is too early to test positive so she could be . She denies a history of kidney stones [facility] Medical History Vitamin D deficiency Depression Anxiety Pure hypercholesterolemia depression Migraine Surgical History History of wisdom tooth extraction Family History Father Hyperlipidemia Hypertension Diabetes Mother Hypertension Maternal Grandfather No problems noted. 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 Cognitive needs: No Hearing needs: No Vision needs: No Review of Systems Const All systems reviewed & are unremarkable except as noted in HPI and below Physical Exam Vital Signs: Last Vital Signs Pulse 86 03/13/24 08:21 BP 120/70 03/13/24 08:21 Pulse Ox 99 03/13/24 08:21 Oxygen Delivery Method Room Air 03/13/24 08:21 Const General: cooperative, healthy appearing, comfortable and no acute distress Orientation/consciousness: patient oriented x3 HEENT Head: Yes normal to inspection Ears: hearing grossly normal bilaterally General nose exam: Normal external nose present Face and sinus: Yes normal facial exam Neck Neck: Yes normal visual inspection, Yes trachea midline and Yes supple Resp Effort & Inspection: normal respiratory effort and able to speak in complete sentences General: Yes no CVA tenderness Back/Spine/Pelvis Back: no CVA tenderness Skin General skin exam: no rashes or lesions noted Neuro General: patient oriented x3 Psych Appearance: grossly normal Speech and movement: Normal speech and movement present Attitude: cooperative Thought process: Normal thought process present Insight: Good insight present (Psych) Judgement: Good judgement present (Psych) Assessment & Plan Assessment & Plan (1) UTI (urinary tract infection): Code(s): N39.0 - Urinary tract infection, site not specified Qualifiers: Urinary tract infection type: acute cystitis Hematuria presence: without hematuria Qualified Code(s): N30.00 - Acute cystitis without hematuria Plan: Urinalysis positive for leukocyte esterase, negative for nitrites and positive for blood. We will treat with cefuroxime. Plan see above Medications: New cefuroxime axetil 500 mg PO Q12H 10 tabs 0RF Coding Level of Care Code Est Pt Level 3 (23685) Diagnoses Acute cystitis without hematuria N30.00 Urinary tract infection type: acute cystitis Hematuria presence: without hematuria
== END 2024-03-13 08:30 | disposition home or self-care (01) ==
PROVIDERS: PCP Internal Medicine; Visit Provider Physician Assistant
DX: Z13.9 Encounter for screening, unspecified (principal); N30.00 Acute cystitis without hematuria

== ENCOUNTER → 2024-03-13 08:03 | Outpatient (BNVA) | payer BC, SELFPAY | PROVIDERS: PCP Internal Medicine; Visit Provider Physician Assistant | DX: N30.00 Acute cystitis without hematuria (principal) | CPT/HCPCS: 81003 ==

== ENCOUNTER 2024-06-25 08:26 | Outpatient (REF) | payer SELFPAY ==
[2024-06-25 08:39] LABS: MANUAL DIFF FLAG NO
--- OUTSIDE RECORDS SUMMARY | 2024-06-25 08:51 | XMS_ITS | Encounter Summary ---
Author Organization [facility] Address [address] [place] [address] Care Team Providers Care Dryer And Washer Mechanic Name Role Phone Nixon Maxwell MD Primary Care Provider Gerson Saleh NP Primary Care Provider +1- [phone] Reason for Visit * Reason Comments Medication Refill Encounter Details Date Type Department Care Team (Late st Contact Info) Description 10/09/2017 Refill [facility] [place] [address] [place], [place] [phone] Gregoria Graham PA [address] [place], [place] [phone] Common migraine with intractable migraine; Migraine without aura, with intractable migraine, so stated, with status migrainosus Social History Tobacco Use Types Packs/Day Years Used Date Smoking Tobacco: Never Smokeless Tobacco: Never Alcohol Use Standard Drinks/Week Comments Yes 0 (1 standard drink = 0.6 oz pur e alcohol) socially, few times per month Sex and Gender Information Value Date Recorded Sex Assigned at Not on file Gender Identity Not on file Sexual Orientation Not on file documented as of this encounter Plan of Treatment Not on file documented as of this encounter Visit Diagnoses Diagnosis Common migraine with intractable migraine Migraine without aura, with intractable migraine, so stated, without mention of status migrainosus Migraine without aura, with intractable migraine, so stated, with status migrainosus documented in this encounter Care Teams Dryer And Washer Mechanic Relationship Specialty Start Date End Date Nixon Maxwell MD PCP - General Family Medicine 11/05/15 07/15/18 Gerson Saleh NP [address] [place] [address] PCP - General 07/16/18 documented as of this encounter
--- OUTSIDE RECORDS SUMMARY | 2024-06-25 08:51 | XMS_ITS | Encounter Summary ---
Author Organization [facility] Address [address] [place] [address] Care Team Providers Care Appointment Coordinator Name Role Phone Nixon Maxwell MD Primary Care Provider Gerson Saleh NP Primary Care Provider +1- [phone] Encounter Details Date Type Department Care Team (Late st Contact Info) Description 10/11/[address] [facility] [address] [place] [address] Gregoria Graham PA [address] [place], [place] [phone] Social History Tobacco Use Types Packs/Day Years [...] documented as of this encounter Visit Diagnoses Not on filedocumented in this encounter Care Teams Appointment Coordinator Relationship Specialty Start Date End Date Nixon Maxwell MD PCP - General Family Medicine 11/05/15 07/15/18 Gerson Saleh NP [address] [place] [address] PCP - General 07/16/18 documented as of this encounter
--- OUTSIDE RECORDS SUMMARY | 2024-06-25 08:51 | XMS_ITS | Encounter Summary ---
Author Organization [facility] Address [address] [place] [address] Care Team Providers Care Behavioral Therapy Coordinator Name Role Phone Nixon Maxwell MD Primary Care Provider Gerson Saleh NP Primary Care Provider +1- [phone] Encounter Details Date Type Department Care Team (Late st Contact Info) Description 03/02/2018 Scanned Document [facility] [address] [place] [address] Gregoria Graham PA [address] [place] [address] Social History Tobacco Use Types Packs/Day Years Used Date Smoking Tobacco: Never Smokeless Tobacco: Never Alcohol Use Standard Drinks/Week Comments Yes 0 (1 standard drink = 0.6 oz pur e alcohol) 1-2 TIMES PER MONTH 1-2 DRINKS Sex and Gender Information Value Date Recorded Sex Assigned at Not on file Gender Identity Not on file Sexual Orientation Not on file documented as of this encounter Plan of Treatment Not on file documented as of this encounter Visit Diagnoses Not on filedocumented in this encounter Care Teams Behavioral Therapy Coordinator Relationship Specialty Start Date End Date Nixon Maxwell MD PCP - General Family Medicine 11/05/15 07/15/18 Gerson Saleh NP [address] [place] [address] PCP - General 07/16/18 documented as of this encounter
--- OUTSIDE RECORDS SUMMARY | 2024-06-25 08:51 | XMS_ITS | Encounter Summary ---
Author Organization [facility] Address [address] [place] [address] Care Team Providers Care Supervisor Photocomposition Name Role Phone Nixon Maxwell MD Primary Care Provider +1 [phone] Gerson Saleh NP Primary Care Provider +1- [phone] Encounter Details Date Type Department Care Team (Late st Contact Info) Description 03/03/2017 Scanned Document [address] [place] [address] Kathleen Asif APRN Social History Tobacco Use Types Packs/Day Years Used Date Smoking Tobacco: Never Smokeless Tobacco: Never Alcohol Use Standard Drinks/Week Comments Yes 0 (1 standard drink = 0.6 oz pur e alcohol) socially Sex and Gender Information Value Date Recorded Sex Assigned at Not on file Gender Identity Not on file Sexual Orientation Not on file documented as of this encounter Plan of Treatment Not on file documented as of this encounter Visit Diagnoses Not on filedocumented in this encounter Care Teams Supervisor Photocomposition Relationship Specialty Start Date End Date Nixon Maxwell MD PCP - General Family Medicine 11/05/15 07/15/18 Gerson Saleh NP [address] [place] [address] PCP - General 07/16/18 documented as of this encounter
--- OUTSIDE RECORDS SUMMARY | 2024-06-25 08:51 | XMS_ITS | Encounter Summary ---
Author Organization [facility] Address [address] [place] [address] Care Team Providers Care It Solutions Sales Consultant Name Role Phone Nixon Maxwell MD Primary Care Provider Gerson Saleh NP Primary Care Provider +1- [phone] Encounter Details Date Type Department Care Team (Late st Contact Info) Description 06/18/2018 Scanned Document [facility] [place] [facility] [address] [place] [address] Gregoria Graham PA [address] [place] [address] Social History Tobacco Use Types Packs/Day Years [...] on filedocumented in this encounter Care Teams It Solutions Sales Consultant Relationship Specialty Start Date End Date Nixon Maxwell MD PCP - General Family Medicine 11/05/15 07/15/18 Gerson Saleh NP [address] [place] [address] PCP - General 07/16/18 documented as of this encounter
--- OUTSIDE RECORDS SUMMARY | 2024-06-25 08:51 | XMS_ITS | Encounter Summary ---
Author Organization [facility] Address [address] [place] [address] Care Team Providers Care Model Builder Display Name Role Phone Nixon Maxwell MD Primary Care Provider Gerson Saleh NP Primary Care Provider +1- [phone] Reason for Visit * Reason Comments Medication Refill Encounter Details Date Type Department Care Team (Late st Contact Info) Description 11/06/2017 Refill [facility] [address] [place], [place] [phone] Gregoria Graham PA [address] [place], [place] [phone] Migraine without aura, with intractable migraine, so [...] on file documented as of this encounter Miscellaneous Notes * Telephone Encounter - Cinthia Carbajal LPN - 11/06/2017 3:28 PM EDT Patient prescription was changed to Zolmitriptan and refilled on 10.10.17 with 2 additional refills. documented in this encounter Plan of Treatment Not on file documented as of this encounter Visit Diagnoses Diagnosis Migraine without aura, with intractable migraine, so stated, with status migrainosus documented in this encounter Care Teams Model Builder Display Relationship Specialty Start Date End Date Nixon Maxwell MD PCP - General Family Medicine 11/05/15 07/15/18 Gerson Saleh NP [address] [place] [address] PCP - General 07/16/18 documented as of this encounter
--- OUTSIDE RECORDS SUMMARY | 2024-06-25 08:51 | XMS_ITS | Encounter Summary ---
Author Organization [facility] Address [address] [place] [address] Care Team Providers Care Clay Miller Name Role Phone Nixon Maxwell MD Primary Care Provider +1 -[phone] Gerson Saleh NP Primary Care Provider +1- [phone] Encounter Details Date Type Department Care Team (Late st Contact Info) Description 01/24/2017 Scanned Document [facility] - [address] [place], [place] [phone] Kathleen Jesus MA [address] [place] [address] Social History Tobacco Use Types Packs/Day Years [...] on filedocumented in this encounter Care Teams Clay Miller Relationship Specialty Start Date End Date Nixon Maxwell MD PCP - General Family Medicine 11/05/15 07/15/18 Gerson Saleh NP [address] [place] [address] PCP - General 07/16/18 documented as of this encounter
--- OUTSIDE RECORDS SUMMARY | 2024-06-25 08:51 | XMS_ITS | Encounter Summary ---
Author Organization [facility] Address [address] [place] [address] Care Team Providers Care Necktie Stitcher Name Role Phone Nixon Maxwell MD Primary Care Provider [phone] -[phone] Gerson Saleh NP Primary Care Provider +1- [phone] Reason for Visit * Reason Comments Medication Refill Encounter Details Date Type Department Care Team (Late st Contact Info) Description 09/07/[address] [address] Gregg Mcfarland MD [address] [place] [address] Social History Tobacco Use Types Packs/Day Years Used Date Smoking Tobacco: Never Alcohol Use Standard Drinks/Week Comments Not Asked 0 (1 standard drink = 0.6 oz pur e alcohol) Sex and Gender Information Value Date Recorded Sex Assigned at Not on file Gender Identity Not on file Sexual Orientation Not on file documented as of this encounter Plan of Treatment Not on file documented as of this encounter Visit Diagnoses Not on filedocumented in this encounter Care Teams Necktie Stitcher Relationship Specialty Start Date End Date Nixon Maxwell MD PCP - General Family Medicine 11/05/15 07/15/18 Gerson Saleh NP [address] [place] [address] PCP - General 07/16/18 documented as of this encounter
--- OUTSIDE RECORDS SUMMARY | 2024-06-25 08:51 | XMS_ITS | Encounter Summary ---
Author Organization [facility] Address [address] [place] [address] Care Team Providers Care Urologic Surgeon Name Role Phone Nixon Maxwell MD Primary Care Provider +1 -[phone] Gerson Saleh NP Primary Care Provider +1- [phone] Encounter Details Date Type Department Care Team (Late st Contact Info) Description 12/22/2016 Scanned Document [facility] - [address] [place], [place] [phone] Kathleen Jesus MA [address] [place] [address] Social History Tobacco Use Types Packs/Day Years [...] on filedocumented in this encounter Care Teams Urologic Surgeon Relationship Specialty Start Date End Date Nixon Maxwell MD PCP - General Family Medicine 11/05/15 07/15/18 Gerson Saleh NP [address] [place] [address] PCP - General 07/16/18 documented as of this encounter
--- OUTSIDE RECORDS SUMMARY | 2024-06-25 08:51 | XMS_ITS | Encounter Summary ---
Author Organization [facility] Address [address] [place] [address] Care Team Providers Care Mold Capper Helper Name Role Phone Nixon Maxwell MD Primary Care Provider Gerson Saleh NP Primary Care Provider +1- [phone] Encounter Details Date Type Department Care Team (Late st Contact Info) Description 11/28/2017 [place] [address] Gregoria Graham PA [address] [place] [address] [address] [place] [address] Social History Tobacco Use Types Packs/Day Years [...] on filedocumented in this encounter Care Teams Mold Capper Helper Relationship Specialty Start Date End Date Nixon Maxwell MD PCP - General Family Medicine 11/05/15 07/15/18 Gerson Saleh NP [address] [place] [address] PCP - General 07/16/18 documented as of this encounter
--- OUTSIDE RECORDS SUMMARY | 2024-06-25 08:51 | XMS_ITS | Data Portability ---
Author Organization [facility] Address [address] [place] [address] Assessment No assessment recorded. Plan of Treatment Reminders Order Date Submit Date Provider Last Modified By Organization Details Last Modified Time Details Appointments None recorded . Lab None recorded . Referral None recorded . Procedures None recorded . Surgeries None recorded . Imaging /S breast right - breast pain 015 02/14/20 15 [email or web address] [facility] (Radiology), [address] [place] [address], [address], 5 09:16:31 Medication Orders None recorded . Patient TargetsNo targets recorded. Patient Instructions Encounter Date Encounter Id Patient Instructions Last Modified By Organization Details Last Modified Time 02/13/2015 [id number] may take motrin for breast pain, pain may be cyclical/hormona l: ? ? ?would recommend repeat exam at time of pap next month and review us report at that time [email or web address] Not available 02/13/2015 14:46:06 Reason for Referral None Reported. Problems Name Problem SNOMED Code Status Onset Date Resolution Date Notes Provider Name and Address Organization Details Recorded Time Pain of breast 66727648 Active ODALIS BARROW MD [address] [facility] [place], [address] , [facility] 02/13/2015 14:46:06 Problem Notes None recorded. Procedures Surgical History Date Name Laterality Status Provider Name and Address Organization Details Recorded Time 10/20/2014 LEEP completed ODALIS BARROW MD [address] [facility] [place], [address], [facility] 02/01/2015 18:50:46 Imaging Results None recorded. Procedure Notes None recorded. Medical Equipment None Reported. Allergies Allergen ID Allergen Name Allergen Category Reaction Reaction Severity Criticality Documentation Date Start Date Code Code System Note Provider Name and Address Organization Details Recorded Time 410168 neomycin medicatio n Not available Not available Not available 02/01/2015 7299 RxNorm ODALIS Chairez MD [address] [facility] Floor, [place], [address] [place] [address] 5 18:50:46 Medications Name Sig Start Date Stop Date Status Note LastModified by Organization Details LastModified Time Proctosol HC 2.5 % rectal cream with applicator active Not Available Not Available N ot Available rizatriptan 10 mg tablet active Not Available Not Available No t Available valacyclovir 500 mg tablet active Not Available Not Availabl e Not Available ciprofloxacin 500 mg tablet active Not Available Not Availabl e Not Available amitriptyline 50 mg tablet active Not Available Not Available Not Available hyoscyamine 0.125 mg sublingual tablet active Not Available Not Available Not Available ampicillin 250 mg capsule active Not Available Not Available N ot Available polyethylene glycol 3350 17 gram/dose oral powder active Not Available Not Available Not Available Minastrin 24 Fe 1 mg-20 mcg (24)/75 mg (4) chewable tablet active Not Available Not Availa ble Not Available Vitals Date Recorded Body height Body mass index (BMI) Body weight Systolic blood pressure Diastolic blood pressure Provider Name and Address Organization Details Last Updated DateTime 02/13/2015 167.64 cm 20.7 kg/m2 98112.82 336 g 100 mm[Hg] 60 mm[Hg] Yaneth Reddy [facility] 5 14:24:06 Social History Question Answer Notes LastModified by Organizat ion Details LastModified Time What Is Your Level Of Alcohol Consumption? Occasional Information not available 02/01/2015 Drug Use? No Information n ot available 02/01/2015 Sex: Unknown Functional Status None recorded. Mental Status None recorded. Family History Relationship Description Onset Age of this Age Resolved Age Notes LastModified by Organization Details LastModified Time Mother Hypertensive disorder [email or web address] Not available 07/2014 18:50:46 Unspecified Relation Hypertensive disorder [email or web address] Not available 07/2014 18:50:46 Father Diabetes mellitus [email or web address] Not available 07/2014 18:50:46 Maternal Grandmother Malignant tumor of breast [email or web address] Not available 07/2014 18:50:46 Medical History Condition Response Headaches/Migraines Y Gynecological History Statement/Question Response Current Control Method BCPs Obstetrics History GPAL:G 0 P 0 0 0 0 Past Encounters Encounter ID Performer Location Encounter Start Date Encounter Closed Date Diagnosis/Indication Diagnosis SNOMED-CT Code Diagnosis ICD10 Code Diagnosis Note [id number] [facility] [address] [place] [address] [place], [place] [address] 02/13/2015 14:19:09 02/13/2015 14:47:41 Pain of breast 63735714 N64.4 Health Concerns Section Related Observation LastModified by Organization Detai ls LastModified Time None Recorded Concern Status LastModified by Organization Details LastModified Time None Recorded Advance Directives Directive None Recorded Payers Encounter Date Sequence Insurance Name Policy Number Policy Bell Covered Member ID Bell Member ID Guarantor Name 02/13/2015 1 [place] [id number] Tracey Gold [id number] Tracey Contreras OBGyn Episode No OBEpisode recorded.
--- OUTSIDE RECORDS SUMMARY | 2024-06-25 08:51 | XMS_ITS | Encounter Summary ---
Author Organization [facility] Address [address] [place] [address] Care Team Providers Care Mapping Technician Name Role Phone Nixon Maxwell MD Primary Care Provider [phone] -[phone] Gerson Saleh NP Primary Care Provider +- [phone] Encounter Details Date Type Department Care Team (Late st Contact Info) Description 03/14/2017 [place] [address] Kathleen Jesus MA [address] [place] [address] Social History Tobacco Use Types Packs/Day Years [...] on filedocumented in this encounter Care Teams Mapping Technician Relationship Specialty Start Date End Date Nixon Maxwell MD PCP - General Family Medicine 11/05/15 07/15/18 Gerson Saleh NP [address] [place] [address] PCP - General 07/16/18 documented as of this encounter
--- OUTSIDE RECORDS SUMMARY | 2024-06-25 08:51 | XMS_ITS | Encounter Summary ---
Author Organization [facility] Address [address] [place] [address] Care Team Providers Care Educational Psychologist Name Role Phone Nixon Maxwell MD Primary Care Provider +1 [phone] Gerson Saleh NP Primary Care Provider +1- [phone] Encounter Details Date Type Department Care Team (Late st Contact Info) Description 09/15/2017 Scanned Document [facility] [address] [place] [address] Gregoria Graham PA [address] [place], [place] [phone] Social History Tobacco Use Types Packs/Day Years [...] on filedocumented in this encounter Care Teams Educational Psychologist Relationship Specialty Start Date End Date Nixon Maxwell MD PCP - General Family Medicine 11/05/15 07/15/18 Gerson Saleh NP [address] [place] [address] PCP - General 07/16/18 documented as of this encounter
--- OUTSIDE RECORDS SUMMARY | 2024-06-25 08:52 | XMS_ITS | Encounter Summary ---
Author Organization [facility] Address [address] [place] [address] Care Team Providers Care Head Of Marketing Adometry Name Role Phone Nixon Maxwell MD Primary Care Provider [phone] Gerson Saleh NP Primary Care Provider +1- [phone] Encounter Details Date Type Department Care Team (Late st Contact Info) Description 05/24/2017 Scanned Document [facility] [address] [place] [address] Gregoria Graham PA [address] [place], [place] [id number] Social History Tobacco Use Types Packs/Day Years [...] on filedocumented in this encounter Care Teams Head Of Marketing Adometry Relationship Specialty Start Date End Date Nixon Maxwell MD PCP - General Family Medicine 11/05/15 07/15/18 Gerson Saleh NP [address] [place] [address] PCP - General 07/16/18 documented as of this encounter
--- OUTSIDE RECORDS SUMMARY | 2024-06-25 08:52 | XMS_ITS | Clinical Summary ---
Author Organization [facility] Address [address] [place] [address] Care Team Providers Care Manufacturing Engineer Paint Name Role Phone Gerson Saleh NP Primary Care Provider +1- [phone] Allergies Active Allergy Reactions Criticality Noted Date Comments Bacitracin Rash/Dermatitis Low 11/05/2015 Neomycin-Bacitracin Zn-Polymyx Rash/Dermatitis Low 11/05/2015 Medications Medication Sig Dispensed Refills Start Date End Date Status vitamin with iron and folic acid ( VITAMINS) 28-0.8 MG Tab tablet Take 1 tablet by mouth daily. Active MISC MEDICATION/NEUTRACE UTICALIndications:C hronic migraine without aura, with intractable migraine, so stated, with status migrainosus Cefaly #1 device w/ 3 electrodes Use as instructed 20 minutes daily 1 Device 3 11/28/2017 Active acetaminophen (TYLENOL) 325 MG tablet Take 650 mg by mouth 4 times daily (every 6 hours) as needed for mild pain. Active nitrofurantoin monohydrate (MACROBID) 100 MG capsuleIndications: Dysuria Take 1 capsule (100 mg total) by mouth 2 (two) times a day with meals. Dispense generic equivalent of MACROBID 14 capsule 08/21/2020 Active phenazopyridine (PYRIDIUM) 200 MG tabletIndications:D ysuria Take 1 tablet (200 mg total) by mouth 3 (three) times a day in the morning, mid-day and early evening. 10 tablet 08/21/2020 Active Active Problems Problem Noted Date Diagnosed Date Crohn's disease of small and large intestines Idiopathic scoliosis and kyphoscoliosis 06/05/19 18 Overview (01/31/2023): Regulatory diagnosis update for 01/29/23 Neuralgia 03/03/2017 Myalgia 03/03/2017 Cervicalgia 01/20/2017 Migraine without aura 12/20/2016 Menstrual migraine, intractable, without status migrainosus 12/20/2016 Anxiety 12/20/2016 Family History Medical History Relation Name Comments Diabetes Father Hyperlipidemia Father Hypertension Father Migraines Maternal Aunt Breast cancer Maternal Grandmother Alcohol abuse Maternal Uncle Migraines Maternal Uncle Hypertension Mother Migraines Mother Diabetes Paternal Grandfather Stroke Paternal Grandfather Diabetes Paternal Grandmother spine cancer Relation Name Status Comments Father Alive Maternal Aunt Maternal Grandfather unknown Maternal Grandmother Alive Maternal Uncle Mother Alive Paternal Grandfather Paternal Grandmother spine cancer Social History Tobacco Use Types Packs/Day Years Used Date Smoking Tobacco: Never Smokeless Tobacco: Never Alcohol Use Standard Drinks/Week Comments Not Currently 0 (1 standard drink = 0.6 oz pure alcohol) 1-2 TIMES PER MONTH 1-2 DRINKS Sex and Gender Information Value Date Recorded Sex Assigned at Not on file Gender Identity Not on file Sexual Orientation Not on file Last Filed Vital Signs Vital Sign Reading Time Taken Comments Blood Pressure 147/74 08/21/2020 5:54 PM EDT Pulse 93 08/21/2020 5:54 PM EDT Temperature 37.5 ??C (99.5 ??F) 08/21/2020 5:54 PM ED T Respiratory Rate 16 11/12/2018 1:21 PM EDT Oxygen Saturation 98% 08/21/2020 5:54 PM EDT Inhaled Oxygen Concentration - - Weight 63.5 kg (140 lb) 08/21/2020 5:54 PM EDT Height 170.2 cm (5' 7 ) 08/21/2020 5:54 PM EDT Body Mass Index 21.93 08/21/2020 5:54 PM EDT Plan of Treatment Health Maintenance Due Date Last Done Comments Hepatitis C Virus Screening 1988 HIV Screening 2001 DTaP/Tdap/Td Vaccines (1 - Tdap) 12/22/2007 Hepatitis B Vaccines (1 of 3 - 19+ 3-dose series) 12/22/2007 Pap Smear (Ages 21-65) 2009 Influenza Vaccine 11/30/2023 COVID-19 Vaccine (2 - 2023-2 5 season) 2023 08/23/2020 HPV Vaccines Aged Out No longer eligi ble based on patient's age to complete this topic Pneumococcal Vaccine: Pediat della (0-5 Years) and At-Risk Patients (6 to 49 Years) Aged Out No longer eligible b ased on patient's age to complete this topic Care Teams Manufacturing Engineer Paint Relationship Specialty Start Date End Date Gerson Saleh NP [address] [place] [address] PCP - General 07/16/18
[2024-06-25 09:06] LABS: Basophils Percent Auto 0.8 % (0-2); Eosinophils Absolute Auto 0.1 X10*3/uL (0.0-0.4); Eosinophils Percent Auto 1.9 % (0-4); Hematocrit 41.2 % (37.0-47.0); Hemoglobin 13.3 g/dl (12.0-16.0); Imm Gran Abs Auto 0.01 X10*3/uL (0.00-0.03); Imm Gran Pct Auto 0.2 % (0.0-0.4); Lymphocytes Absolute Auto 1.3 X10*3/uL (1.2-4.9); Lymphocytes Percent Auto 25.8 % (20-40); Mean Corpuscular HGB Conc 32.3 g/dl (31.0-35.0); Mean Corpuscular Hemoglobin 27.7 pg (27.0-33.0); Mean Corpuscular Volume 85.7 fL (80.0-98.0); Mean Platelet Volume 10.7 fL (9.4-12.3); Monocytes Absolute Auto 0.4 X10*3/uL (0.1-1.2); Monocytes Percent Auto 8.1 % (2-11); Neutrophils Absolute Auto 3.3 x10*3/uL (2.0-8.3); Neutrophils Percent Auto 63.2 % (45-73); Platelet Count 302 X10*3/uL (160-400); Red Blood Count 4.81 X10*6/uL (4.20-5.50); Red Cell Distribution Width 13.2 % (11.0-16.0); White Blood Count 5.2 X10*3/uL (4.8-10.8)
[2024-06-25 09:20] LABS: Appearance Urine Clear; Color Urine Yellow; Glucose Urine UA Negative (Negative); Leukocyte Esterase Urine Negative (Negative); Nitrite Urine Negative (Negative); PH 5.5 (5.0-9.0); Specific Gravity - Urine 1.025 (1.005-1.025); UMIC TRIGGER UACC YES; Urine Blood Trace (Negative); Urine Ketones Negative (Negative); Urine Protein Negative (Neg-Trace)
[2024-06-25 09:22] LABS: Bacteria Urine None Seen (None Seen); Hyaline Casts Urine 0-2 /LPF (0-2); RBC Urine 0-2 /HPF (0-2); WBC Urine 0-5 /HPF (0-5)
[2024-06-25 09:41] LABS: Alanine Aminotransferase 20 U/L (0-31); Albumin Level 4.6 g/dL (3.5-5.0); Alkaline Phosphatase 121 U/L (39-117); Anion Gap 13 (12-20); Aspartate Amino Transferase 23 U/L (5-31); Bilirubin Total 0.3 mg/dL (0.0-1.0); Blood Urea Nitrogen 12 mg/dL (9-16); Calcium 9.6 mg/dL (8.4-10.2); Carbon Dioxide 26 mmol/L (22-29); Chloride 107 mmol/L (96-108); Cholesterol 204 mg/dL (<200); Estimated Glomerular Filt Rate > 60; Glucose Fasting 87 mg/dL (60-99); HDL Cholesterol 52 mg/dL (>40); LDL Cholesterol Calculated 134 mg/dL (<100); Potassium 4.4 mmol/L (3.3-5.1); Sodium 142 mmol/L (135-145); Total Protein 8.3 g/dL (6.5-8.0); Triglycerides 91 mg/dL (<150)
[2024-06-25 09:58] LABS: Vitamin D 25-OH Total 16.6 ng/mL (>30)
== END 2024-06-25 08:27 | disposition home or self-care (01) ==
LOC: HO.LAB 08:26
PROVIDERS: PCP Internal Medicine; Visit Provider Internal Medicine
DX: Z00.00 Encounter for general adult medical examination without abnormal findings (principal); E78.00 Pure hypercholesterolemia, unspecified; E55.9 Vitamin D deficiency, unspecified; D64.9 Anemia, unspecified
CPT/HCPCS: 36415; 80053; 80061; 81001; 82306; 84443; 85025

== ENCOUNTER 2024-07-01 10:32 | Outpatient (AMB) | payer BC, SELFPAY ==
[2024-07-01 10:33] VITALS: BP 120/80; PULSE 71; O2SAT 98; BMI 24.0
--- NOTE | 2024-07-01 10:33 | A.OFFPC_ITS ---
Vital Signs 07/01/24 10:33 Height 5 ft 7 in Weight 153 lb 2 oz BMI 24.0 BP 120/80 Blood Pressure Location Lt brachial Position Sitting Pulse 71 Pulse Source Pulse Oximeter Pulse Oximetry (%) 98 Oxygen Delivery Method Room Air Intake Visit Reasons: hyperlipidemia, migraine Golf Course Mechanic Required: No Accompanied by: Self / Same As Patient Allergies neomycin [From Neosporin ([id number])] Allergy (Unknown, Verified 07/01/24 11:00) Rash polymyxin B [From Neosporin ([id number])] Allergy (Unknown, Verified 07/01/24 11:00) Rash bacitracin Adverse Reaction (Unknown, Verified 07/01/24 11:00) rash Medication List - Last Reconciled 07/01/24 by Shimon Reeder MD zolmitriptan TAKE 1 TAB AT ONSET OF HEADACHE IF NO RELIEF, MAY REPEAT 1 TAB AFTER AT LEAST 2 HOURS 30 days Tobacco use date assessed: 07/01/24 Dental Screening Dental Screen Date: 07/01/24 Did you have a dental visit in the last 12 months?: Yes Did you have a dental problem in the last 6 months where you did not have access to dental care?: No Was dental information given to patient?: Patient has dentist HPI hyperlipidemia, migraine HPI Details Patient comes in today for her follow up visit States that she feels okay She denies any headaches or dizziness Denies any chest pains, no SOB No nausea/vomiting, no abdominal pain No change in bowel habits noted She had her follow up labs done last week - to discuss her results [facility] Medical History Vitamin D deficiency Depression Anxiety Pure hypercholesterolemia depression Migraine Surgical History History of wisdom tooth extraction Family History Father Hyperlipidemia Hypertension Diabetes Mother Hypertension Maternal Grandfather No problems noted. 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 1. Little interest or pleasure in doing things: not at all 2. Feeling down, depressed, or hopeless: not at all 3. Trouble falling or staying asleep, or sleeping too much: not at all 4. Feeling tired or having little energy: several days 5. Poor appetite or overeating: not at all 6. Feeling bad about yourself - or that you are a failure or have let yourself or your family down: not at all 7. Trouble concentrating on things, such as reading the newspaper or watching television: not at all 8. Moving or speaking so slowly that other people could have noticed. Or the opposite - being so fidgety or restless that you have been moving around a lot more than usual: not at all 9. Thoughts that you would be better off or of hurting yourself in some way: not at all Total score: 1 Depression Screening Interpretation: Negative Depression Screening Done: Yes 98093 - PHQ-9 Billing: Yes Source: Developed by Drs. Juan Pak, Sanaz Foster, Sree Morley and colleagues, with an educational leo from [employer]. Thrive Questionnaire Date Thrive assessed: 07/01/24 I am a: Patient What is your living situation today?: I have a steady place to live Within the past 12 months, did the food you bought not last and you didn't have the money to get more?: Never true Within the past 12 months, did you worry whether your food would run out before you got money to buy more?: Never true Do you have trouble paying for medicines?: No Do you have trouble getting transportation to medical appointments?: No Do you have trouble paying your heating and electricity bill?: No Do you have trouble taking care of your child, family member or friend?: No Do you have trouble with day-to-day activities such as bathing, preparing meals, shopping, managing finances, etc.?: No Are you currently unemployed and looking for a job?: No Are you interested in more education?: No Please select the resources that you would like help with: None Currently or been in a relationship where the following occur: No concerns reported THRIVE Score: 0 AUDIT C Alcohol Use Questionnaire (AUDIT-C) 1. How often do you have a drink containing alcohol?: Monthly or less 2. How many drinks containing alcohol do you have on a typical day when you are drinking?: 1 or 2 3. How often do you have six or more drinks on one occasion?: Never Total Score: 1 Score Reviewed/Action Taken: Yes FAN-7 AMB Questionnaire FAN-7 Date FAN - 7 assessed: 07/01/24 Feeling nervous, anxious, or on edge: 1 = Several days Not being able to stop or control worryin = Several days Worrying too much about different things: 1 = Several days Trouble relaxin = Several days Being so restless that it is hard to sit still: 0 = Not at all Becoming easily annoyed or irritable: 1 = Several days Feeling afraid as if something awful might happen: 0 = Not at all Total FAN-7 score (0-4 normal; 5-9 mild; 10-14 moderate; 15-21 severe): 5 Source: Developed by Drs. Juan Pak, Sanaz Foster, Sree Morley and colleagues, with an educational leo from [employer]. Review of Systems Const Denies chills, Denies fatigue, Denies fever(s) and Denies headache(s) ENT Denies dysphagia, Denies dizziness, Denies otalgia, Denies headache(s), Denies neck pain, Denies odynophagia and Denies sore throat Card Denies chest pain, Denies palpitations and Denies dyspnea Resp Denies chest congestion, Denies cough and Denies dyspnea GI Denies abdominal pain, Denies constipation, Denies dysphagia, Denies heartburn, Denies diarrhea, Denies nausea, Denies odynophagia and Denies vomiting Denies difficulty voiding, Denies nocturia, Denies dysuria and Denies urinary urgency Musc Denies back pain and Denies neck pain Skin/Breast Denies rash Neuro Denies dizziness and Denies headache(s) Endo Denies fatigue and Denies palpitations Physical exam (Primary Care) Vital Signs: Last Vital Signs Pulse 71 07/01/24 10:33 BP 120/80 07/01/24 10:33 Pulse Ox 98 07/01/24 10:33 Oxygen Delivery Method Room Air 07/01/24 10:33 BMI result Body Mass Index 24.0 Tobacco/Smoking Status: Tobacco use Status Tobacco use date assessed 07/01/24 07/01/24 10:40 Patient Tobacco Use Status Never used Tobacco 07/01/24 10:35 e-Cigarette/Vaping Use Never Used 07/01/24 10:35 PHQ-9: PHQ-9 Score PHQ-9: Total score 1 07/01/24 10:40 Depression Screening Interpretation: Negative Thrive Assessment: Date of Thrive Assessment Date Thrive assessed 07/01/24 07/01/24 10:35 Currently or been in a relationship where the following occur: No concerns reported Const General: no acute distress and alert HENMT Ears: TM's normal bilaterally and EAC's normal Throat: Yes posterior oropharynx normal and Yes tonsils normal (no TP congestion) Neck Neck: Yes supple and No lymphadenopathy Thyroid: Thyroid normal Resp Auscultation: clear to auscultation bilaterally, no rales and no wheezes Cardio Rate: regular rate Rhythm: regular rhythm Heart sounds: no murmurs GI Palpation (GI): Soft to palpation and nontender Auscultation: normal bowel sounds General: Yes no CVA tenderness Back/Spine/Pelvis Back: no CVA tenderness Thoracic/Lumbar Spine: No lumbar spinal tenderness Skin Rashes: no rashes Extrem General: Yes no clubbing, cyanosis or edema Results Reviewed Results Reviewed: Laboratory Tests 06/25/24 06/25/24 08:36 08:37 WBC 5.2 Hgb 13.3 Hct 41.2 Plt Count 302 Sodium 142 Potassium 4.4 Creatinine 0.69 Estimated GFR > 60 Fasting Glucose 87 Calcium 9.6 AST 23 ALT 20 Triglycerides 91 Cholesterol 204 H LDL Cholesterol, Calc 134 H HDL Cholesterol 52 25-OH Vitamin D Total 16.6 L TSH 1.40 Urine pH 5.5 Ur Specific Hanson 1.025 Urine Protein Negative Urine Glucose (UA) Negative Urine Blood Trace H Urine Nitrite Negative Ur Leukocyte Esterase Negative Coding Level of Care Code Est Pt Level 4 (81910) Diagnoses Pure hypercholesterolemia E78.00 Migraine without status migrainosus, not intractable, unspecified migraine type G43.909 Migraine type: unspecified Status migrainosus presence: without status migrainosus Intractability: not intractable Vitamin D deficiency E55.9 Insomnia, unspecified type G47.00 Insomnia type: unspecified Anxiety F41.9 depression O99.345; F53.0 Depression Type: depression Additional Codes PHQ-9 - 57568 - PHQ-9 Billing: Yes ([id number]) Assessment & Plan Assessment & Plan (1) Pure hypercholesterolemia: Code(s): E78.00 - Pure hypercholesterolemia, unspecified Category: Medical Plan: Results of her labs done last week reviewed and discussed with patient - she is advised that her cholesterol levels are mostly unchanged from previous although arguably, they are a few points better than before Reinforced low cholesterol diet Will have her recheck her labs and fasting lipids in 6 months for follow up (2) Migraine: Comment: Has been tried on prophylactic Rx in the past (Amitriptyline, beta blockers, nerve blocks) with little success; doing much better currently on Emgality Code(s): G43.909 - Migraine, unspecified, not intractable, without status migrainosus Category: Medical Qualifiers: Migraine type: unspecified Status migrainosus presence: without status migrainosus Intractability: not intractable Qualified Code(s): G43.909 - Migraine, unspecified, not intractable, without status migrainosus Plan: Her migraine headaches have been well-controlled on Emgality 120 mg SQ Q 3 months for a while but she had to come off her Rx last year as she and her are trying to conceive again Notes that her headaches have not gotten any worse since she stopped taking her Emgality last year Continue Zolmitriptan 5 mg PRN Have advised her again to try taking some OTC Vitamin B2, which are being used by neurologists to help reduce the frequency and intensity of migraine headaches - this can be taken during if it works Reinforced again avoidance of any potential migraine triggers to help minimize flare ups of her headaches (3) Vitamin D deficiency: Code(s): E55.9 - Vitamin D deficiency, unspecified Category: Medical Plan: Have advised patient that her Vitamin D level is still low on her recent labs Have instructed her to start taking OTC Vitamin D3 2000 units QD (4) Insomnia: Code(s): G47.00 - Insomnia, unspecified Category: Medical Qualifiers: Insomnia type: unspecified Qualified Code(s): G47.00 - Insomnia, unspecified Plan: Sleep hygiene reinforced She has tried OTC Melatonin a few times in the past but did not find them helpful Have discussed with patient that her recent problems with sleeping is most likely due to the fact the she has a small child at home rather than an actual case of insomnia (5) Anxiety: Code(s): F41.9 - Anxiety disorder, unspecified Category: Medical Plan: She was doing well previously on Sertraline 150 mg QD but she self-discontinued the Rx a while back and feels that she has been doing well OFF her Rx since She does not feel she needs any Rx or intervention at this time (6) Depression: Code(s): F32.A - Depression, unspecified Category: Medical Qualifiers: Depression Type: depression Qualified Code(s): O99.345 - Other mental disorders complicating the puerperium; F53.0 - depression Plan: (+) Hx of depression, which has since resolved She was on Sertraline 150 mg QD but she self-discontinued Rx sometime a couple of years ago and has been doing well OFF her Rx so far Plan To return in 6 months for her next annual physical examination Orders: Orders Comprehensive [place]. Panel Fast 6 Months E78.00 - Pure hypercholesterolemia, unspecified, Z00.00 - Encounter for general adult medical examination without abnormal findings TSH reflex Free T4 6 Months E78.00 - Pure hypercholesterolemia, unspecified, Z00.00 - Encounter for general adult medical examination without abnormal findings Complete Blood Count Auto Diff 6 Months D64.9 - Anemia, unspecified, Z00.00 - Encounter for general adult medical examination without abnormal findings Lipid Panel 6 Months E78.00 - Pure hypercholesterolemia, unspecified, Z00.00 - Encounter for general adult medical examination without abnormal findings UA CC w/rflx Micro + Cult 6 Months R30.0 - Dysuria, Z00.00 - Encounter for general adult medical examination without abnormal findings Vitamin D 25-OH Total 6 Months E55.9 - Vitamin D deficiency, unspecified, Z00.00 - Encounter for general adult medical examination without abnormal findings Medications: New cholecalciferol (vitamin D3) 50 mcg PO DAILY 90 days 90 caps 3RF E55.9 - Vitamin D deficiency, unspecified
--- OUTSIDE RECORDS SUMMARY | 2024-07-01 12:18 | XMS_ITS | Encounter Summary ---
Author Organization [facility] Address [address] [place] [address] Care Team Providers Care Shampoo Technician Name Role Phone Nixon Maxwell MD Primary Care Provider [phone] Gerson Saleh NP Primary Care Provider +1- [phone] Encounter Details Date Type Department Care Team (Late st Contact Info) Description 12/22/2016 Scanned Document [facility] - [address] [place], [place] [id number] Kathleen Jesus MA [address] [place] [address] Social History Tobacco Use Types Packs/Day Years [...] on filedocumented in this encounter Care Teams Shampoo Technician Relationship Specialty Start Date End Date Nixon Maxwell MD PCP - General Family Medicine 11/05/15 07/15/18 Gerson Saleh NP [address] [place] [address] PCP - General 07/16/18 documented as of this encounter
--- OUTSIDE RECORDS SUMMARY | 2024-07-01 12:18 | XMS_ITS | Encounter Summary ---
Author Organization [facility] Address [address] [place] [address] Care Team Providers Care Directional Bore Operator Name Role Phone Nixon Maxwell MD Primary Care Provider Gerson Saleh NP Primary Care Provider +1- [phone] Reason for Visit * Reason Comments Medication Refill Encounter Details Date Type Department Care Team (Late st Contact Info) Description 10/09/2017 Refill [facility] [address] [place], [place] [phone] Gregoria Graham PA [address] [place], [place] [phone] Common migraine with intractable migraine; Migraine without [...] migrainosus documented in this encounter Care Teams Directional Bore Operator Relationship Specialty Start Date End Date Nixon Maxwell MD PCP - General Family Medicine 11/05/15 07/15/18 Gerson Saleh NP [address] [place] [address] PCP - General 07/16/18 documented as of this encounter
--- OUTSIDE RECORDS SUMMARY | 2024-07-01 12:18 | XMS_ITS | Encounter Summary ---
Author Organization [facility] Address [address] [place] [address] Care Team Providers Care E Commerce Director Name Role Phone Nixon Maxwell MD Primary Care Provider [phone] Gerson Saleh NP Primary Care Provider +- [phone] Encounter Details Date Type Department Care Team (Late st Contact Info) Description 03/14/2017 [place] [address] Kathleen Jesus MA [address] [place] [address] Social History Tobacco Use Types Packs/Day Years [...] on filedocumented in this encounter Care Teams E Commerce Director Relationship Specialty Start Date End Date Nixon Maxwell MD PCP - General Family Medicine 11/05/15 07/15/18 Gerson Saleh NP [address] [place] [address] PCP - General 07/16/18 documented as of this encounter
--- OUTSIDE RECORDS SUMMARY | 2024-07-01 12:18 | XMS_ITS | Clinical Summary ---
Author Organization [facility] Address [address] [place] [address] Care Team Providers Care Site Leader Name Role Phone Gerson Saleh NP Primary Care Provider +1- [phone] Allergies Active Allergy Reactions Criticality Noted Date [...] age to complete this topic Care Teams Site Leader Relationship Specialty Start Date End Date Gerson Saleh NP [address] [place] [address] PCP - General 07/16/18
--- OUTSIDE RECORDS SUMMARY | 2024-07-01 12:18 | XMS_ITS | Encounter Summary ---
Author Organization [facility] Address [address] [place] [address] Care Team Providers Care Pierogi Maker Name Role Phone Nixon Maxwell MD Primary Care Provider Gerson Saleh NP Primary Care Provider +1- [phone] Encounter Details Date Type Department Care Team (Late st Contact Info) Description 06/18/2018 Scanned Document [facility] [address] [place] [address] Gregoria Graham PA [address] [place] [address] Social History Tobacco Use Types Packs/Day Years [...] on filedocumented in this encounter Care Teams Pierogi Maker Relationship Specialty Start Date End Date Nixon Maxwell MD PCP - General Family Medicine 11/05/15 07/15/18 Gerson Saleh NP [address] [place] [address] PCP - General 07/16/18 documented as of this encounter
--- OUTSIDE RECORDS SUMMARY | 2024-07-01 12:18 | XMS_ITS | Encounter Summary ---
Author Organization [facility] Address [address] [place] [address] Care Team Providers Care Senior Finance Manager Name Role Phone Nixon Maxwell MD Primary Care Provider [phone] Gerson Saleh NP Primary Care Provider +1- [phone] Encounter Details Date Type Department Care Team (Late st Contact Info) Description 01/24/[address] [facility] - [address] [place], [place] [phone] Kathleen Jesus MA [address] [place] [address] Social History Tobacco Use Types Packs/Day Years [...] on filedocumented in this encounter Care Teams Senior Finance Manager Relationship Specialty Start Date End Date Nixon Maxwell MD PCP - General Family Medicine 11/05/15 07/15/18 Gerson Saleh NP [address] [place] [address] PCP - General 07/16/18 documented as of this encounter
--- OUTSIDE RECORDS SUMMARY | 2024-07-01 12:18 | XMS_ITS | Encounter Summary ---
Author Organization [facility] Address [address] [place] [address] Care Team Providers Care Family Law Legal Assistant Name Role Phone Nixon Maxwell MD Primary Care Provider Gerson Saleh NP Primary Care Provider +1- [phone] Reason for Visit * Reason Comments Medication Refill Encounter Details Date Type Department Care Team (Late st Contact Info) Description 11/06/2017 Refill [facility] [address] [place], [place] [id number] Gregoria Graham PA [address] [address] [place], [place] [phone] Migraine without aura, with intractable migraine, so [...] migrainosus documented in this encounter Care Teams Family Law Legal Assistant Relationship Specialty Start Date End Date Nixon Maxwell MD PCP - General Family Medicine 11/05/15 07/15/18 Gerson Saleh NP [address] [place] [address] PCP - General 07/16/18 documented as of this encounter
--- OUTSIDE RECORDS SUMMARY | 2024-07-01 12:18 | XMS_ITS | Encounter Summary ---
Author Organization [facility] Address [address] [place] [address] Care Team Providers Care Plastic Press Operator Name Role Phone Nixon Maxwell MD Primary Care Provider [phone] [phone] Gerson Saleh NP Primary Care Provider +1- [phone] Encounter Details Date Type Department Care Team (Late st Contact Info) Description 09/15/2017 Scanned Document [facility] [address] [facility] [place] [address] Gregoria Graham PA [address] [place], [place] [id number] Social History Tobacco Use Types Packs/Day Years [...] on filedocumented in this encounter Care Teams Plastic Press Operator Relationship Specialty Start Date End Date Nixon Maxwell MD PCP - General Family Medicine 11/05/15 07/15/18 Gerson Saleh NP [address] [place] [address] PCP - General 07/16/18 documented as of this encounter
--- OUTSIDE RECORDS SUMMARY | 2024-07-01 12:18 | XMS_ITS | Encounter Summary ---
Author Organization [facility] Address [address] [place] [address] Care Team Providers Care Adult Care Provider Name Role Phone Nixon Maxwell MD Primary Care Provider [phone] [phone] Gerson Saleh NP Primary Care Provider +1- [phone] Reason for Visit * Reason Comments Medication Refill Encounter Details Date Type Department Care Team (Late st Contact Info) Description 09/07/[address] [id number] Gregg Mcfarland MD [address] [place] [address] Social History Tobacco Use Types Packs/Day [...] on filedocumented in this encounter Care Teams Adult Care Provider Relationship Specialty Start Date End Date Nixon Maxwell MD PCP - General Family Medicine 11/05/15 07/15/18 Gerson Saleh NP [address] [place] [address] PCP - General 07/16/18 documented as of this encounter
--- OUTSIDE RECORDS SUMMARY | 2024-07-01 12:18 | XMS_ITS | Encounter Summary ---
Author Organization [facility] Address [address] [place] [address] Care Team Providers Care Social Service Agency Director Name Role Phone Nixon Maxwell MD Primary Care Provider Gerson Saleh NP Primary Care Provider +1- [phone] Encounter Details Date Type Department Care Team (Late st Contact Info) Description 10/11/2017 Scanned Document [facility] [address] [place] [address] Gregoria Graham PA [address] [place], [place] [phone] Social History Tobacco Use Types Packs/Day Years [...] on filedocumented in this encounter Care Teams Social Service Agency Director Relationship Specialty Start Date End Date Nixon Maxwell MD PCP - General Family Medicine 11/05/15 07/15/18 Gerson Saleh NP [address] [place] [address] PCP - General 07/16/18 documented as of this encounter
--- OUTSIDE RECORDS SUMMARY | 2024-07-01 12:18 | XMS_ITS | Encounter Summary ---
Author Organization [facility] Address [address] [place] [address] Care Team Providers Care Social Work Administrator Name Role Phone Nixon Maxwell MD Primary Care Provider Gerson Saleh NP Primary Care Provider +1- [phone] Encounter Details Date Type Department Care Team (Late st Contact Info) Description 08/02/2017 Scanned Document [facility] - [address] [place] [address] [place] [address] Social History Tobacco Use Types Packs/Day Years [...] filedocumented in this encounter Care Teams Social Work Administrator Relationship Specialty Start Date End Date Nixon Maxwell MD PCP - General Family Medicine 11/05/15 07/15/18 Gerson Saleh NP [address] [place] [address] PCP - General 07/16/18 documented as of this encounter
--- OUTSIDE RECORDS SUMMARY | 2024-07-01 12:18 | XMS_ITS | Encounter Summary ---
Author Organization [facility] Address [address] [place] [address] Care Team Providers Care Lead Database Administrator Name Role Phone Nixon Maxwell MD Primary Care Provider [phone] Gerson Saleh NP Primary Care Provider +1- [phone] Encounter Details Date Type Department Care Team (Late st Contact Info) Description 03/03/2017 Scanned Document [address] [place] [address] Kathleen Asif APRN Social History Tobacco Use [...] on filedocumented in this encounter Care Teams Lead Database Administrator Relationship Specialty Start Date End Date Nixon Maxwell MD PCP - General Family Medicine 11/05/15 07/15/18 Gerson Saleh NP [address] [place] [address] PCP - General 07/16/18 documented as of this encounter
--- OUTSIDE RECORDS SUMMARY | 2024-07-01 12:18 | XMS_ITS | Encounter Summary ---
Author Organization [facility] Address [address] [place] [address] Care Team Providers Care High [employer] Library Media Specialist Name Role Phone Nixon Maxwell MD Primary Care Provider [phone] Gerson Saleh NP Primary Care Provider +1- [phone] Encounter Details Date Type Department Care Team (Late st Contact Info) Description 05/24/2017 Scanned Document [facility] [address] [facility] [place] [address] Gregoria Graham PA [address] [place], [place] [phone] Social History Tobacco Use Types Packs/Day Years [...] on filedocumented in this encounter Care Teams High School Library Media Specialist Relationship Specialty Start Date End Date Nixon Maxwell MD PCP - General Family Medicine 11/05/15 07/15/18 Gerson Saleh NP [address] [place] [address] PCP - General 07/16/18 documented as of this encounter
--- OUTSIDE RECORDS SUMMARY | 2024-07-01 12:18 | XMS_ITS | Encounter Summary ---
Author Organization [facility] Address [address] [place] [address] Care Team Providers Care Transition Nurse Name Role Phone Nixon Maxwell MD Primary Care Provider Gerson Saleh NP Primary Care Provider +1- [phone] Encounter Details Date Type Department Care Team (Late st Contact Info) Description 03/02/2018 Scanned Document [facility] [address] [facility] [place] [address] Gregoria Graham PA [address] [place] [address] Social History Tobacco Use Types Packs/Day Years [...] on filedocumented in this encounter Care Teams Transition Nurse Relationship Specialty Start Date End Date Nixon Maxwell MD PCP - General Family Medicine 11/05/15 07/15/18 Gerson Saleh NP [address] [place] [address] PCP - General 07/16/18 documented as of this encounter
--- OUTSIDE RECORDS SUMMARY | 2024-07-01 12:18 | XMS_ITS | Encounter Summary ---
Author Organization [facility] Address [address] [place] [address] Care Team Providers Care Translator/Interpreter Name Role Phone Nixon Maxwell MD Primary Care Provider Gerson Saleh NP Primary Care Provider +1- [phone] Encounter Details Date Type Department Care Team (Late st Contact Info) Description 11/28/2017 [place] [address] Gregoria Graham PA [address] [place] [address] [address] [place] [address] Social History Tobacco Use Types Packs/Day Years [...] on filedocumented in this encounter Care Teams Translator/Interpreter Relationship Specialty Start Date End Date Nixon Maxwell MD PCP - General Family Medicine 11/05/15 07/15/18 Gerson Saleh NP [address] [place] [address] PCP - General 07/16/18 documented as of this encounter
== END 2024-07-01 11:14 | disposition home or self-care (01) ==
PROVIDERS: PCP Internal Medicine; Visit Provider Internal Medicine
DX: E78.00 Pure hypercholesterolemia, unspecified (principal); G43.909 Migraine, unspecified, not intractable, without status migrainosus; E55.9 Vitamin D deficiency, unspecified; G47.00 Insomnia, unspecified; F41.9 Anxiety disorder, unspecified; O99.345 Other mental disorders complicating the puerperium; F53.0 Postpartum depression

== ENCOUNTER → 2024-07-01 10:32 | Outpatient (BNVA) | payer BC, SELFPAY | PROVIDERS: PCP Internal Medicine; Visit Provider Internal Medicine | DX: E78.00 Pure hypercholesterolemia, unspecified (principal); G43.909 Migraine, unspecified, not intractable, without status migrainosus; E55.9 Vitamin D deficiency, unspecified; G47.00 Insomnia, unspecified; F41.9 Anxiety disorder, unspecified; Z86.59 Personal history of other mental and behavioral disorders; Z79.899 Other long term (current) drug therapy | CPT/HCPCS: 96127 ==

== ENCOUNTER 2025-01-13 09:28 | Outpatient (AMB) | payer BC, SELFPAY ==
[2025-01-13 09:36] VITALS: BP 122/64; PULSE 92; O2SAT 98; BMI 24.5
--- NOTE | 2025-01-13 09:36 | MHC.PC.OV ---
Vital Signs 01/13/25 09:36 Height 5 ft 7 in Weight 156 lb 8 oz BMI 24.5 BP 122/64 Blood Pressure Location Lt brachial Position Sitting Pulse 92 Pulse Source Pulse Oximeter Pulse Oximetry (%) 98 Oxygen Delivery Method Room Air Intake Visit Reasons: pe Income Tax Analyst Required: No Accompanied by: Self / Same As Patient Allergies neomycin (From Neosporin ([id number])) Allergy (Unknown, Verified 01/13/25 10:08) Rash polymyxin B (From Neosporin ([id number])) Allergy (Unknown, Verified 01/13/25 10:08) Rash bacitracin Adverse Reaction (Unknown, Verified 01/13/25 10:08) rash Medication List - Last Reconciled 01/13/25 by Shimon Reeder MD cholecalciferol (vitamin D3) 50 mcg PO DAILY 90 days zolmitriptan TAKE 1 TAB AT ONSET OF HEADACHE IF NO RELIEF, MAY REPEAT 1 TAB AFTER AT LEAST 2 HOURS 30 days Tobacco use date assessed: 01/13/25 Dental Screening Dental Screen Date: 01/13/25 Did you have a dental visit in the last 12 months?: Yes Did you have a dental problem in the last 6 months where you did not have access to dental care?: No Was dental information given to patient?: Patient has dentist HPI pe HPI Details Patient comes in today for her annual physical examination States that she is currently 18 weeks into her second (EDC is on 06/15/2025) and she is still experiencing on and off nausea, mostly in the morning Reports (+) fatigue - states that she has trouble sleeping through the night at times since she got She denies any headaches or dizziness - states that her migraine headaches have been stable/controlled lately Denies any chest pains, no SOB No vomiting, no abdominal pain and no change in bowel habits noted She denies any acute urinary symptoms She was not able to get her labs done prior to her appointment today - states that she will try to get these done MALGORZATA She is currently following up with her OB-Gang Investigator at [facility] for her exams [facility] Medical History Vitamin D deficiency Depression Anxiety Pure hypercholesterolemia depression Migraine Surgical History History of wisdom tooth extraction Family History Father Hyperlipidemia Hypertension Diabetes Mother Hypertension Maternal Grandfather No problems noted. Sister In good health Son In good health Brother In good health Maternal Grandmother Breast cancer Other Substance abuse Social History Housing: Apartment Alcohol intake: current Alcohol intake frequency: holidays/special occasions only Patient Tobacco Use Status: Never used Tobacco e-Cigarette/Vaping Use: Never Used Second Hand Smoke Exposure: No service: No Current occupational status: employed Current occupation: [employer] Cognitive needs: No Hearing needs: No Vision needs: No Questionnaire PHQ-9 Over the last 2 weeks, how often have you been bothered by any of the following problems? 1. Little interest or pleasure in doing things: not at all 2. Feeling down, depressed, or hopeless: not at all 3. Trouble falling or staying asleep, or sleeping too much: not at all 4. Feeling tired or having little energy: not at all 5. Poor appetite or overeating: not at all 6. Feeling bad about yourself - or that you are a failure or have let yourself or your family down: not at all 7. Trouble concentrating on things, such as reading the newspaper or watching television: not at all 8. Moving or speaking so slowly that other people could have noticed. Or the opposite - being so fidgety or restless that you have been moving around a lot more than usual: not at all 9. Thoughts that you would be better off or of hurting yourself in some way: not at all Total score: 0 Depression Screening Interpretation: Negative Depression Screening Done: Yes 17814 - PHQ-9 Billing: Yes Source: Developed by Drs. Juan Pak, Sanaz Foster, Sree Morley and colleagues, with an educational leo from [employer]. Thrive Questionnaire Date Thrive assessed: 01/13/25 I am a: Patient What is your living situation today?: I have a steady place to live Within the past 12 months, did the food you bought not last and you didn't have the money to get more?: Never true Within the past 12 months, did you worry whether your food would run out before you got money to buy more?: Never true Do you have trouble paying for medicines?: No Do you have trouble getting transportation to medical appointments?: No Do you have trouble paying your heating and electricity bill?: No Do you have trouble taking care of your child, family member or friend?: No Do you have trouble with day-to-day activities such as bathing, preparing meals, shopping, managing finances, etc.?: No Are you currently unemployed and looking for a job?: No Are you interested in more education?: No Please select the resources that you would like help with: None Currently or been in a relationship where the following occur: No concerns reported THRIVE Score: 0 AUDIT C Alcohol Use Questionnaire (AUDIT-C) 1. How often do you have a drink containing alcohol?: Monthly or less 2. How many drinks containing alcohol do you have on a typical day when you are drinking?: 1 or 2 3. How often do you have six or more drinks on one occasion?: Never Total Score: 1 Score Reviewed/Action Taken: Yes FAN-7 AMB Questionnaire FAN-7 Date FAN - 7 assessed: 01/13/25 Feeling nervous, anxious, or on edge: 0 = Not at all Not being able to stop or control worryin = Not at all Worrying too much about different things: 0 = Not at all Trouble relaxin = Not at all Being so restless that it is hard to sit still: 0 = Not at all Becoming easily annoyed or irritable: 0 = Not at all Feeling afraid as if something awful might happen: 0 = Not at all Total FAN-7 score (0-4 normal; 5-9 mild; 10-14 moderate; 15-21 severe): 0 Source: Developed by Drs. Juan Pak, Sanaz Foster, Sree Morley and colleagues, with an educational leo from [employer]. Review of Systems Const Denies chills, Reports difficulty sleeping (at times lately since she got ), Reports fatigue, Denies fever(s), Denies headache(s) and Denies malaise Eyes Denies blurry vision, Denies change in vision, Denies irritation and Denies itchy eyes ENT Denies dysphagia, Denies dizziness, Denies otalgia, Denies headache(s), Denies nasal congestion, Denies neck pain, Denies odynophagia, Denies sinus pain and Denies sore throat Card Denies chest pain, Denies rapid heart rate, Denies irregular heart rhythm, Denies palpitations and Denies dyspnea Resp Denies chest congestion, Denies cough, Denies dyspnea and Denies wheezing GI Denies abdominal pain, Denies bloating, Denies constipation, Denies dysphagia, Denies heartburn, Denies diarrhea, Reports nausea (on and off, mostly related to her current ), Denies odynophagia and Denies vomiting Denies hematuria, Denies urinary frequency, Denies dysuria, Denies urinary incontinence and Denies urinary urgency Musc Denies back pain, Denies arthralgias, Denies joint swelling, Denies muscle weakness and Denies neck pain Skin/Breast Denies breast pain, Denies breast mass, Denies change in pigmentation, Denies lesions, Denies rash and Denies unusual bruising Neuro Denies dizziness, Denies headache(s) and Denies paresthesias Psych Denies anxiety and Denies depression Endo Reports fatigue and Denies palpitations Jj/Lymph Denies easy bruising Aller/Immun Denies itchy eyes and Denies wheezing Physical exam (Primary Care) Vital Signs: Last Vital Signs Pulse 92 01/13/25 09:36 BP 122/64 01/13/25 09:36 Pulse Ox 98 01/13/25 09:36 Oxygen Delivery Method Room Air 01/13/25 09:36 BMI result Body Mass Index 24.5 Tobacco/Smoking Status: Tobacco use Status Tobacco use date assessed 01/13/25 01/13/25 09:45 Patient Tobacco Use Status Never used Tobacco 01/13/25 09:45 e-Cigarette/Vaping Use Never Used 01/13/25 09:45 PHQ-9: PHQ-9 Score PHQ-9: Total score 0 01/13/25 09:45 Depression Screening Interpretation: Negative Thrive Assessment: Date of Thrive Assessment Date Thrive assessed 01/13/25 01/13/25 09:45 Currently or been in a relationship where the following occur: No concerns reported Const General: no acute distress, alert and awake Orientation/consciousness: patient oriented x3 HENMT Head: Yes normocephalic and Yes atraumatic Ears: external ears normal, TM's normal bilaterally and EAC's normal General nose exam: No nasal discharge present Face and sinus: Yes normal facial exam and Yes sinuses nontender Teeth and gingiva: dentition normal Throat: Yes posterior oropharynx normal and Yes tonsils normal (no TP congestion) Eyes Eyelids: Yes eyelids normal Conjunctivae: conjunctivae normal Pupils: Equal, round and reactive pupils present EOM: EOMs intact bilaterally Neck Neck: Yes no lymphadenopathy and Yes supple Thyroid: Thyroid normal Resp Auscultation: clear to auscultation bilaterally, no rales and no wheezes Cardio Rate: regular rate Rhythm: regular rhythm Heart sounds: no murmurs GI Palpation (GI): Soft to palpation, nontender and No hepatosplenomegaly present Auscultation: normal bowel sounds General: Yes no CVA tenderness Back/Spine/Pelvis Back: no CVA tenderness Thoracic/Lumbar Spine: thoracic and lumbar spine normal to inspection Skin Lesions: no lesions Rashes: no rashes Neuro General: patient oriented x3, moves all extremities, no focal motor deficits and CN's II-XI intact bilaterally Cranial nerves: Yes Equal, round and reactive pupils present Cognition (Neuro): normal cognition Gait exam (Neuro): Normal gait present Extrem General: Yes no clubbing, cyanosis or edema Coding Level of Care Code Est Pt Prev Care 18-39y(95698) Diagnoses Annual physical exam Z00.00 Second trimester Z34.92 Pure hypercholesterolemia E78.00 Migraine without status migrainosus, not intractable, unspecified migraine type G43.909 Migraine type: unspecified Status migrainosus presence: without status migrainosus Intractability: not intractable Vitamin D deficiency E55.9 Insomnia, unspecified type G47.00 Insomnia type: unspecified Anxiety F41.9 depression O99.345; F53.0 Depression Type: depression Additional Codes PHQ-9 - 86199 - PHQ-9 Billing: Yes ([id number]) Assessment & Plan Assessment & Plan (1) Annual physical exam: Code(s): Z00.00 - Encounter for general adult medical examination without abnormal findings Category: Medical Plan: Check labs MALGORZATA to complete her annual exam today - her labs have been ordered previously and patient can just go and get these done at any time He is also currently up-to-date with her yearly gynecology exam and pap smear and she is now seeing her OB-Gang Investigator regularly for her care (2) Second trimester : Code(s): Z34.92 - Encounter for supervision of normal , unspecified, second trimester Category: Medical Plan: She is now 18 weeks into her second (EDC is on 06/15/2025) Continue vitamins QD Follow up with OB-Gynecology at [facility] as scheduled for her care (3) Pure hypercholesterolemia: Code(s): E78.00 - Pure hypercholesterolemia, unspecified Category: Medical Plan: Reinforced low cholesterol diet Will have her recheck her labs and fasting lipids MALGORZATA for follow up (4) Migraine: Comment: Has been tried on prophylactic Rx in the past (Amitriptyline, beta blockers, nerve blocks) with little success; doing much better currently on Emgality Code(s): G43.909 - Migraine, unspecified, not intractable, without status migrainosus Category: Medical Qualifiers: Migraine type: unspecified Status migrainosus presence: without status migrainosus Intractability: not intractable Qualified Code(s): G43.909 - Migraine, unspecified, not intractable, without status migrainosus Plan: Her migraine headaches have been well-controlled on Emgality 120 mg SQ Q 3 months for a while but she had to come off her Rx last year as she and her are trying to conceive again Notes that her headaches have not gotten any worse since she stopped taking her Emgality last year She was taking Zolmitriptan 5 mg PRN for her headaches but as she is now , is reminded NOT to take this and she can just take OTC Tylenol as needed while she is Have advised her again to try taking some OTC Vitamin B2, which are being used by neurologists to help reduce the frequency and intensity of migraine headaches - this can be taken during if it works Reinforced again avoidance of any potential migraine triggers to help minimize flare ups of her headaches (5) Vitamin D deficiency: Code(s): E55.9 - Vitamin D deficiency, unspecified Category: Medical Plan: Continue OTC Vitamin D3 2000 units QD (6) Insomnia: Code(s): G47.00 - Insomnia, unspecified Category: Medical Qualifiers: Insomnia type: unspecified Qualified Code(s): G47.00 - Insomnia, unspecified Plan: Sleep hygiene reinforced She has tried OTC Melatonin a few times in the past but did not find them helpful States that her sleep is still erratic and more so now that she is but does not wish to take anything for sleep at this time (7) Anxiety: Code(s): F41.9 - Anxiety disorder, unspecified Category: Medical Plan: She was doing well previously on Sertraline 150 mg QD but she self-discontinued the Rx a while back and feels that she has been doing well OFF her Rx since She does not feel she needs any Rx or intervention at this time (8) Depression: Code(s): F32.A - Depression, unspecified Category: Medical Qualifiers: Depression Type: depression Qualified Code(s): O99.345 - Other mental disorders complicating the puerperium; F53.0 - depression Plan: (+) Hx of depression, which has since resolved She was on Sertraline 150 mg QD but she self-discontinued Rx sometime a couple of years ago and has been doing well OFF her Rx so far Plan Follow up in 6 months (July 2025, as her EDC is in mid to late June 2025)
--- OUTSIDE RECORDS SUMMARY | 2025-01-13 11:23 | XMS_ITS | Encounter Summary ---
Author Organization [facility] Address [address] [place] [address] Care Team Providers Care Machinist/Machine Builder Name Role Phone Nixon Maxwell MD Primary Care Provider Un available Gerson Saleh NP Primary Care Provider +1- [phone] Encounter Details Date Type Department Care Team (Late st Contact Info) Description 03/02/2018 Scanned Document [facility] [address] [facility] [place] [address] Gregoria Graham PA [address] [place] [address] Social History Tobacco Use Types Packs/Day Years Used Date Smoking Tobacco: Never Smokeless Tobacco: Never Alcohol Use Standard Drinks/Week Comments Yes 0 (1 standard drink = 0.6 oz pur e alcohol) 1-2 TIMES PER MONTH 1-2 DRINKS Comments No Sex and Gender Information Value Date Recorded Sex Assigned at Not on file Legal Sex Female 3:31 PM EDT Gender Identity Not on file Sexual Orientation Not on file documented as of this encounter Plan of Treatment Not on file documented as of this encounter Visit Diagnoses Not on filedocumented in this encounter Care Teams Machinist/Machine Builder Relationship Specialty Start Date End Date Nixon Maxwell MD PCP - General Family Medicine 11/05/15 07/15/18 Gerson Saleh NP [address] [place] [address] PCP - General 07/16/18 documented as of this encounter
--- OUTSIDE RECORDS SUMMARY | 2025-01-13 11:23 | XMS_ITS | Clinical Summary ---
Author Organization Formerly [facility] Address [address] [place] [address] Care Team Providers Care Technical Operator Name Role Phone Delfino Gerson ALINA Primary Care Provider +1- [phone] Allergies Active Allergy Reactions Criticality Noted Date Comments Bacitracin Rash/Dermatitis Low 11/05/2015 Neomycin-Bacitracin Zn-Polymyx Rash/Dermatitis Low 11/05/2015 Medications vitamin with iron and folic acid ( VITAMINS) 28-0.8 MG Tab tablet Take 1 tablet by mouth daily. Active MISC MEDICATION/NEUTR ACEUTICALIndicat ions:Chronic migraine without aura, with intractable migraine, so stated, with status migrainosus Cefaly #1 device w/ 3 electrodes Use as instructed 20 minutes daily 1 Device 3 8 Active acetaminophen (TYLENOL) 325 MG tablet Take 650 mg by mouth 4 times daily (every 6 hours) as needed for mild pain. Active nitrofurantoin monohydrate (MACROBID) 100 MG capsuleIndicatio ns:Dysuria Take 1 capsule (100 mg total) by mouth 2 (two) times a day with meals. Dispense generic equivalent of MACROBID 14 capsule 1 Active phenazopyridine (PYRIDIUM) 200 MG tabletIndication s:Dysuria Take 1 tablet (200 mg total) by mouth 3 (three) times a day in the morning, mid-day and early evening. 10 tablet 04/23/202 1 Active Active Problems Problem Noted Date Diagnosed [...] 1-2 TIMES PER MONTH 1-2 DRINKS Comments Unknown Sex and Gender Information Value Date Recorded Sex Assigned at Not on file Legal Sex Female 3:31 PM EDT Gender Identity Not on file Sexual Orientation Not on file Last Filed Vital Signs Vital Sign Reading Time Taken Comments Blood Pressure 147/74 08/21/2020 5:54 PM EDT Pulse 93 08/21/2020 5:54 PM EDT Temperature 37.5 C (99.5 F) 08/21/2020 5:54 PM EDT Respiratory Rate 16 11/12/2018 1:21 PM EDT [...] series) 12/22/2007 Pap Smear (Ages 21-65) 2009 HPV Vaccines (1 - 3-dose SCD M series) 12/22/2015 Influenza Vaccine 11/29/2024 COVID-19 Vaccine (2 - 2024-2 6 season) 2024 08/23/2020 Pneumococcal Vaccine: Pediat della (0-5 Years) and At-Risk Patients (6 to 49 Years) Aged Out No longer eligible b ased on patient's age to complete this topic Insurance [facility] - [facility] Care Teams Technical Operator Relationship Specialty Start Date End Date Gerson Saleh NP [address] [place] [address] PCP - General 07/16/18
--- OUTSIDE RECORDS SUMMARY | 2025-01-13 11:23 | XMS_ITS | Encounter Summary ---
Author Organization [facility] Address [address] [place] [address] Care Team Providers Care Track Laying Supervisor Name Role Phone Nixon Maxwell MD Primary Care Provider Un available Gerson Saleh NP Primary Care Provider +1- [phone] Encounter Details Date Type Department Care Team (Late st Contact Info) Description 06/18/2018 Scanned Document [facility] [address] [place] [address] Gregoria Graham PA [address] [place] [address] Social History Tobacco Use Types Packs/Day Years [...] on filedocumented in this encounter Care Teams Track Laying Supervisor Relationship Specialty Start Date End Date Nixon Maxwell MD PCP - General Family Medicine 11/05/15 07/15/18 Gerson Saleh NP [address] [place] [address] PCP - General 07/16/18 documented as of this encounter
--- OUTSIDE RECORDS SUMMARY | 2025-01-13 11:23 | XMS_ITS | Encounter Summary ---
Author Organization [facility] Address [address] [place] [address] Care Team Providers Care Teaching Assistant Name Role Phone Nixon Maxwell MD Primary Care Provider Un available Gerson Saleh NP Primary Care Provider +1- [phone] Encounter Details Date Type Department Care Team (Late st Contact Info) Description 03/03/2017 Scanned Document [address] [place] [address] Kathleen Asif APRN Social History Tobacco Use Types Packs/Day Years Used Date Smoking Tobacco: Never Smokeless Tobacco: Never Alcohol Use Standard Drinks/Week Comments Yes 0 (1 standard drink = 0.6 oz pur e alcohol) socially Comments No Sex and Gender Information Value Date Recorded Sex Assigned at Not on file Legal Sex Female 3:31 PM EDT Gender Identity Not on file Sexual Orientation Not on file documented as of this encounter Plan of Treatment Not on file documented as of this encounter Visit Diagnoses Not on filedocumented in this encounter Care Teams Teaching Assistant Relationship Specialty Start Date End Date Nixon Maxwell MD PCP - General Family Medicine 11/05/15 07/15/18 Gerson Saleh NP [address] [place] [address] PCP - General 07/16/18 documented as of this encounter
--- OUTSIDE RECORDS SUMMARY | 2025-01-13 11:23 | XMS_ITS | Encounter Summary ---
Author Organization [facility] Address [address] [place] [address] Care Team Providers Care Composition Worker Name Role Phone Nixon Maxwell MD Primary Care Provider Un available Gerson Saleh NP Primary Care Provider +1- [phone] Encounter Details Date Type Department Care Team (Late st Contact Info) Description 08/02/2017 Scanned Document [facility] [address] [place] [address] [address] [place] [address] Social History Tobacco Use Types Packs/Day Years Used Date Smoking Tobacco: Never Smokeless Tobacco: Never Alcohol Use Standard Drinks/Week Comments Yes 0 (1 standard drink = 0.6 oz pur e alcohol) socially, few times per month Comments No Sex and Gender Information Value Date Recorded Sex Assigned at Not on file Legal Sex Female 3:31 PM EDT Gender Identity Not on file Sexual Orientation Not on file documented as of this encounter Plan of Treatment Not on file documented as of this encounter Visit Diagnoses Not on filedocumented in this encounter Care Teams Composition Worker Relationship Specialty Start Date End Date Nixon Maxwell MD PCP - General Family Medicine 11/05/15 07/15/18 Gerson Saleh NP [address] [place] [place] [address] PCP - General 07/16/18 documented as of this encounter
--- OUTSIDE RECORDS SUMMARY | 2025-01-13 11:23 | XMS_ITS | Encounter Summary ---
Author Organization [facility] Address [address] [place] [address] Care Team Providers Care Jammer Hooker Name Role Phone Nixon Maxwell MD Primary Care Provider Un available Gerson Saleh NP Primary Care Provider +1- [phone] Encounter Details Date Type Department Care Team (Late st Contact Info) Description 05/24/2017 Scanned Document [facility] [address] [place] [address] Gregoria Graham PA [address] [place] [address] Social History Tobacco Use Types Packs/Day Years [...] on filedocumented in this encounter Care Teams Jammer Hooker Relationship Specialty Start Date End Date Nixon Maxwell MD PCP - General Family Medicine 11/05/15 07/15/18 Gerson Saleh NP [address] [place] [address] PCP - General 07/16/18 documented as of this encounter
--- OUTSIDE RECORDS SUMMARY | 2025-01-13 11:23 | XMS_ITS | Encounter Summary ---
Author Organization [facility] Address [address] [place] [address] Care Team Providers Care Clinical Trial Specialist Name Role Phone Nixon Maxwell MD Primary Care Provider Un available Gerson Saleh NP Primary Care Provider +1- [phone] Reason for Visit * Reason Comments Medication Refill Encounter Details Date Type Department Care Team (Late st Contact Info) Description 10/09/2017 Refill [facility] [address] [place] [address] Gregoria Graham PA [address] [place], [place] [id number] Common migraine with intractable migraine; Migraine without [...] intractable migraine, so stated, with status migrainosus Migraine without aura, with intractable migraine, so stated, with status migrainosus documented in this encounter Care Teams Clinical Trial Specialist Relationship Specialty Start Date End Date Nixon Maxwell MD PCP - General Family Medicine 11/05/15 07/15/18 Gerson Saleh NP [address] [place] [address] PCP - General 07/16/18 documented as of this encounter
--- OUTSIDE RECORDS SUMMARY | 2025-01-13 11:23 | XMS_ITS | Encounter Summary ---
Author Organization [facility] Address [address] [place] [address] Care Team Providers Care Mri Manager Name Role Phone Nixon Maxwell MD Primary Care Provider Un available Gerson Saleh NP Primary Care Provider +1- [phone] Reason for Visit * Reason Comments Medication Refill Encounter Details Date Type Department Care Team (Late st Contact Info) Description 09/07/[address] [address] Gregg Mcfarland MD [address] [place] [address] Social History Tobacco Use Types Packs/Day Years Used Date Smoking Tobacco: Never Alcohol Use Standard Drinks/Week Comments Not Asked 0 (1 standard drink = 0.6 oz pur e alcohol) Comments Unknown Sex and Gender Information Value Date Recorded Sex Assigned at Not on file Legal Sex Female 3:31 PM EDT Gender Identity Not on file Sexual Orientation Not on file documented as of this encounter Plan of Treatment Not on file documented as of this encounter Visit Diagnoses Not on filedocumented in this encounter Care Teams Mri Manager Relationship Specialty Start Date End Date Nixon Maxwell MD PCP - General Family Medicine 11/05/15 07/15/18 Gerson Saleh NP [address] [place], [place] [id number] PCP - General 07/16/18 documented as of this encounter
--- OUTSIDE RECORDS SUMMARY | 2025-01-13 11:23 | XMS_ITS | Encounter Summary ---
Author Organization [facility] Address [address] [place] [address] Care Team Providers Care Order Runner Name Role Phone Nixon Maxwell MD Primary Care Provider Un available Gerson Saleh NP Primary Care Provider +1- [phone] Reason for Visit * Reason Comments Medication Refill Encounter Details Date Type Department Care Team (Late st Contact Info) Description 11/06/2017 Refill [facility] [address] [place] [address] Gregoria Graham PA [address] [place] [address] Migraine without aura, with intractable migraine, so [...] migrainosus documented in this encounter Care Teams Order Runner Relationship Specialty Start Date End Date Nixon Maxwell MD PCP - General Family Medicine 11/05/15 07/15/18 Gerson Saleh NP [address] [place] [address] PCP - General 07/16/18 documented as of this encounter
--- OUTSIDE RECORDS SUMMARY | 2025-01-13 11:23 | XMS_ITS | Encounter Summary ---
Author Organization [facility] Address [address] [place] [address] Care Team Providers Care Exerciser Horse Name Role Phone Nixon Maxwell MD Primary Care Provider Un available Gerson Saleh NP Primary Care Provider +1- [phone] Encounter Details Date Type Department Care Team (Late st Contact Info) Description 03/14/2017 [place] [address] Kathleen Jesus MA [address] [place] [address] Social History Tobacco Use Types Packs/Day Years [...] on filedocumented in this encounter Care Teams Exerciser Horse Relationship Specialty Start Date End Date Nixon Maxwell MD PCP - General Family Medicine 11/05/15 07/15/18 Gerson Saleh NP [address] [place] [address] PCP - General 07/16/18 documented as of this encounter
--- OUTSIDE RECORDS SUMMARY | 2025-01-13 11:23 | XMS_ITS | Encounter Summary ---
Author Organization [facility] Address [address] [place] [address] Care Team Providers Care Broaching Machine Repairer Name Role Phone Nixon Maxwell MD Primary Care Provider Un available Gerson Saleh NP Primary Care Provider +1- [phone] Encounter Details Date Type Department Care Team (Late st Contact Info) Description 11/28/2017 Scanned Document [address] [address] Gregoria Graham PA [address] [place] [address] [address] [place] [address] Social History Tobacco Use Types Packs/Day Years [...] on filedocumented in this encounter Care Teams Broaching Machine Repairer Relationship Specialty Start Date End Date Nixon Maxwell MD PCP - General Family Medicine 11/05/15 07/15/18 Gerson Saleh NP [address] [facility] [place] [place] [address] PCP - General 07/16/18 documented as of this encounter
--- OUTSIDE RECORDS SUMMARY | 2025-01-13 11:23 | XMS_ITS | Encounter Summary ---
Author Organization [facility] Address [address] [place] [address] Care Team Providers Care School Cafeteria Cook Head Name Role Phone Nixon Maxwell MD Primary Care Provider Un available Gerson Saleh NP Primary Care Provider +1- [phone] Encounter Details Date Type Department Care Team (Late st Contact Info) Description 09/15/[address] [facility] [address] [place] [address] Gregoria Graham PA [address] [place] [address] Social History Tobacco Use Types Packs/Day Years [...] on filedocumented in this encounter Care Teams School Cafeteria Cook Head Relationship Specialty Start Date End Date Nixon Maxwell MD PCP - General Family Medicine 11/05/15 07/15/18 Gerson Saleh NP [address] [place] [address] PCP - General 07/16/18 documented as of this encounter
--- OUTSIDE RECORDS SUMMARY | 2025-01-13 11:23 | XMS_ITS | Encounter Summary ---
Author Organization [facility] Address [address] [place] [address] Care Team Providers Care Lipcoat Sprayer Name Role Phone Nixon Maxwell MD Primary Care Provider Un available Gerson Saleh NP Primary Care Provider +1- [phone] Encounter Details Date Type Department Care Team (Late st Contact Info) Description 12/22/2016 Scanned Document [facility] [address] [place] [address] Kathleen Jesus MA [address] [place] [address] Social History Tobacco Use Types Packs/Day Years [...] on filedocumented in this encounter Care Teams Lipcoat Sprayer Relationship Specialty Start Date End Date Nixon Maxwell MD PCP - General Family Medicine 11/05/15 07/15/18 Gerson Saleh NP [address] [place] [address] PCP - General 07/16/18 documented as of this encounter
--- OUTSIDE RECORDS SUMMARY | 2025-01-13 11:23 | XMS_ITS | Encounter Summary ---
Author Organization [facility] Address [address] [place] [address] Care Team Providers Care Steel Layout Worker Name Role Phone Nixon Maxwell MD Primary Care Provider Un available Gerson Saleh NP Primary Care Provider +1- [phone] Encounter Details Date Type Department Care Team (Late st Contact Info) Description 10/11/2017 Scanned Document [facility] [address] [place] [address] Gregoria Graham PA [address] [place] [address] Social History Tobacco Use Types Packs/Day Years [...] on filedocumented in this encounter Care Teams Steel Layout Worker Relationship Specialty Start Date End Date Nixon Maxwell MD PCP - General Family Medicine 11/05/15 07/15/18 Gerson Saleh NP [address] [place] [address] PCP - General 07/16/18 documented as of this encounter
--- OUTSIDE RECORDS SUMMARY | 2025-01-13 11:23 | XMS_ITS | Encounter Summary ---
Author Organization [facility] Address [address] [place] [address] Care Team Providers Care Corporate Lawyer Name Role Phone Nixon Maxwell MD Primary Care Provider Un available Gerson Saleh NP Primary Care Provider +1- [phone] Encounter Details Date Type Department Care Team (Late st Contact Info) Description 01/24/2017 Scanned Document [facility] [address] [place] [address] Kathleen Jesus MA [address] [place] [address] Social History Tobacco Use Types Packs/Day Years [...] on filedocumented in this encounter Care Teams Corporate Lawyer Relationship Specialty Start Date End Date Nixon Maxwell MD PCP - General Family Medicine 11/05/15 07/15/18 Gerson Saleh NP [address] [place] [address] PCP - General 07/16/18 documented as of this encounter
== END 2025-01-13 10:21 | disposition home or self-care (01) ==
LOC: HO.HMCH 09:29
PROVIDERS: PCP Internal Medicine; Visit Provider Internal Medicine
DX: Z00.00 Encounter for general adult medical examination without abnormal findings (principal); Z34.92 Encounter for supervision of normal pregnancy, unspecified, second trimester; E78.00 Pure hypercholesterolemia, unspecified; G43.909 Migraine, unspecified, not intractable, without status migrainosus; E55.9 Vitamin D deficiency, unspecified; G47.00 Insomnia, unspecified; F41.9 Anxiety disorder, unspecified; O99.345 Other mental disorders complicating the puerperium; F53.0 Postpartum depression

== ENCOUNTER → 2025-01-13 09:28 | Outpatient (BNVA) | payer BC, SELFPAY | PROVIDERS: PCP Internal Medicine; Visit Provider Internal Medicine | DX: Z00.00 Encounter for general adult medical examination without abnormal findings (principal); O26.892 Other specified pregnancy related conditions, second trimester; O99.342 Other mental disorders complicating pregnancy, second trimester; O99.282 Endocrine, nutritional and metabolic diseases complicating pregnancy, second trimester; E78.00 Pure hypercholesterolemia, unspecified; G43.909 Migraine, unspecified, not intractable, without status migrainosus; E55.9 Vitamin D deficiency, unspecified; G47.00 Insomnia, unspecified; F41.9 Anxiety disorder, unspecified; Z3A.18 18 weeks gestation of pregnancy | CPT/HCPCS: 96127 ==

== ENCOUNTER 2025-04-02 16:40 | Outpatient (AMB) | payer BC, SELFPAY ==
--- NOTE | 2025-04-02 16:42 | MHC.PC.OV ---
Vital Signs 04/02/25 16:43 Height 5 ft 7 in Weight 172 lb 4 oz BMI 27.0 BP 116/72 Blood Pressure Location Lt brachial Position Sitting Pulse 88 Pulse Source Pulse Oximeter Pulse Oximetry (%) 99 Oxygen Delivery Method Room Air Intake Visit Reasons: persistent cough x couple of months Department Chair Required: No Accompanied by: Self / Same As Patient Allergies neomycin (From Neosporin ([id number])) Allergy (Unknown, Verified 04/02/25 16:57) Rash polymyxin B (From Neosporin ([id number])) Allergy (Unknown, Verified 04/02/25 16:57) Rash bacitracin Adverse Reaction (Unknown, Verified 04/02/25 16:57) rash Medication List - Last Reconciled 04/02/25 by Shimon Reeder MD cholecalciferol (vitamin D3) 50 mcg PO DAILY 90 days zolmitriptan TAKE 1 TAB AT ONSET OF HEADACHE IF NO RELIEF, MAY REPEAT 1 TAB AFTER AT LEAST 2 HOURS 30 days Tobacco use date assessed: 04/02/25 Dental Screening Dental Screen Date: 04/02/25 Did you have a dental visit in the last 12 months?: Yes Did you have a dental problem in the last 6 months where you did not have access to dental care?: No Was dental information given to patient?: Patient has dentist HPI persistent cough x couple of months HPI Details - The patient is a 34 year old individual presenting with a persistent cough for two and a half months following a cold. - The cough was initially sporadic, occurred mostly at night while lying down, and was sometimes triggered by drinking cold beverages; however, it has improved over the last week. - The patient is currently 29-30 weeks with an expected due date of June 24, 2025 - For this cough, the patient was seen by their OB and had an EKG, but was unable to complete a recommended respiratory panel due to an issue at the lab facility. - The patient's obiee report developer had suggested getting an inhaler. - The patient does not have a personal history of asthma, though there is a family history of it [facility] Medical History Vitamin D deficiency Depression Anxiety Pure hypercholesterolemia depression Migraine Surgical History History of wisdom tooth extraction Family History Father Hyperlipidemia Hypertension Diabetes Mother Hypertension Maternal Grandfather No problems noted. Sister In good health Son In good health Brother In good health Maternal Grandmother Breast cancer Other Substance abuse Social History Housing: Apartment Alcohol intake: current Alcohol intake frequency: holidays/special occasions only Patient Tobacco Use Status: Never used Tobacco e-Cigarette/Vaping Use: Never Used Second Hand Smoke Exposure: No service: No Current occupational status: employed Current occupation: [employer] Cognitive needs: No Hearing needs: No Vision needs: No Questionnaire PHQ-9 Over the last 2 weeks, how often have you been bothered by any of the following problems? 1. Little interest or pleasure in doing things: not at all 2. Feeling down, depressed, or hopeless: not at all 3. Trouble falling or staying asleep, or sleeping too much: not at all 4. Feeling tired or having little energy: not at all 5. Poor appetite or overeating: not at all 6. Feeling bad about yourself - or that you are a failure or have let yourself or your family down: not at all 7. Trouble concentrating on things, such as reading the newspaper or watching television: not at all 8. Moving or speaking so slowly that other people could have noticed. Or the opposite - being so fidgety or restless that you have been moving around a lot more than usual: not at all 9. Thoughts that you would be better off or of hurting yourself in some way: not at all Total score: 0 Depression Screening Interpretation: Negative Depression Screening Done: Yes 93299 - PHQ-9 Billing: Yes Source: Developed by Drs. Juan Pak, Sanaz Foster, Sree Morley and colleagues, with an educational leo from [employer]. Thrive Questionnaire Date Thrive assessed: 04/02/25 I am a: Patient What is your living situation today?: I have a steady place to live Within the past 12 months, did the food you bought not last and you didn't have the money to get more?: Never true Within the past 12 months, did you worry whether your food would run out before you got money to buy more?: Never true Do you have trouble paying for medicines?: No Do you have trouble getting transportation to medical appointments?: No Do you have trouble paying your heating and electricity bill?: No Do you have trouble taking care of your child, family member or friend?: No Do you have trouble with day-to-day activities such as bathing, preparing meals, shopping, managing finances, etc.?: No Are you currently unemployed and looking for a job?: No Are you interested in more education?: No Please select the resources that you would like help with: None Currently or been in a relationship where the following occur: No concerns reported THRIVE Score: 0 AUDIT C Alcohol Use Questionnaire (AUDIT-C) 1. How often do you have a drink containing alcohol?: Monthly or less 2. How many drinks containing alcohol do you have on a typical day when you are drinking?: 1 or 2 3. How often do you have six or more drinks on one occasion?: Never Total Score: 1 Score Reviewed/Action Taken: Yes FAN-7 AMB Questionnaire FAN-7 Date FAN - 7 assessed: 04/02/25 Feeling nervous, anxious, or on edge: 0 = Not at all Not being able to stop or control worryin = Not at all Worrying too much about different things: 0 = Not at all Trouble relaxin = Not at all Being so restless that it is hard to sit still: 0 = Not at all Becoming easily annoyed or irritable: 0 = Not at all Feeling afraid as if something awful might happen: 0 = Not at all Total FAN-7 score (0-4 normal; 5-9 mild; 10-14 moderate; 15-21 severe): 0 Source: Developed by Drs. Juan Pak, Sanaz Foster, Sree Morley and colleagues, with an educational leo from [employer]. Review of Systems Const Denies chills, Denies fatigue, Denies fever(s) and Denies headache(s) ENT Denies dysphagia, Denies dizziness, Denies otalgia, Denies headache(s), Denies neck pain, Denies odynophagia and Denies sore throat Card Denies chest pain, Denies palpitations and Denies dyspnea Resp Reports chest congestion (on and off), Reports cough (recurrent, non-productive, worse at night), Denies dyspnea and Denies wheezing GI Denies abdominal pain, Denies constipation, Denies dysphagia, Denies heartburn, Denies diarrhea, Denies nausea, Denies odynophagia and Denies vomiting Denies difficulty voiding, Denies nocturia and Denies dysuria Musc Denies back pain and Denies neck pain Skin/Breast Denies rash Neuro Denies dizziness and Denies headache(s) Endo Denies fatigue and Denies palpitations Aller/Immun Denies wheezing Physical exam (Primary Care) Vital Signs: Last Vital Signs Pulse 88 04/02/25 16:43 BP 116/72 04/02/25 16:43 Pulse Ox 99 04/02/25 16:43 Oxygen Delivery Method Room Air 04/02/25 16:43 BMI result Body Mass Index 27.0 Tobacco/Smoking Status: Tobacco use Status Tobacco use date assessed 04/02/25 04/02/25 16:47 Patient Tobacco Use Status Never used Tobacco 04/02/25 16:47 e-Cigarette/Vaping Use Never Used 04/02/25 16:47 PHQ-9: PHQ-9 Score PHQ-9: Total score 0 04/02/25 22:15 Depression Screening Interpretation: Negative Thrive Assessment: Date of Thrive Assessment Date Thrive assessed 04/02/25 04/02/25 16:47 Currently or been in a relationship where the following occur: No concerns reported Const General: no acute distress and alert HENMT Ears: TM's normal bilaterally and EAC's normal Throat: Yes posterior oropharynx normal and Yes tonsils normal (no TP congestion) Neck Neck: Yes supple and No lymphadenopathy Thyroid: Thyroid normal Resp Auscultation: no crackles, no rales, wheezes (occasional, faint, mostly with forced expiration/coughing) and diminished lung sounds (slightly) bilateral Cardio Rate: regular rate Rhythm: regular rhythm Heart sounds: no murmurs GI Palpation (GI): Soft to palpation and nontender Auscultation: normal bowel sounds General: Yes no CVA tenderness Back/Spine/Pelvis Back: no CVA tenderness Thoracic/Lumbar Spine: No lumbar spinal tenderness Skin Rashes: no rashes Extrem General: Yes no clubbing, cyanosis or edema Coding Level of Care Code Est Pt Level 3 (60143) Diagnoses Bronchitis J40 Third trimester Z34.93 Additional Codes PHQ-9 - 18460 - PHQ-9 Billing: Yes ([id number]) Assessment & Plan Assessment & Plan (1) Bronchitis: Code(s): J40 - Bronchitis, not specified as acute or chronic Category: Medical Plan: Patient is currently so unable to send her for chest x-rays for further evaluation Based on auscultation of her lungs during her visit today, have advised her that she likely has at least some mild bronchitis Willl start her empirically on Amoxicillin 500 mg Q 8 hours x 7 days and on Alibuterol HFA 1 to 2 inhalations Q 6 hours PRN (2) Third trimester : Code(s): Z34.93 - Encounter for supervision of normal , unspecified, third trimester Category: Medical Plan: Patient is currently at 29 to 30 weeks AOG; EDC is on 06/24/2025 Follow up with [facility] as scheduled for her care Plan Follow up as scheduled in July 2025 Medications: New amoxicillin 500 mg PO Q8H 21 caps 0RF 7 days albuterol sulfate 90 mcg/actuation (Ventolin HFA) 2 puffs inhalation Q6-8H PRN 8.5 grams 1RF shortness of breath or wheezing 30 days
[2025-04-02 16:43] VITALS: BP 116/72; PULSE 88; O2SAT 99; BMI 27.0
== END 2025-04-02 17:05 | disposition home or self-care (01) ==
PROVIDERS: PCP Internal Medicine; Visit Provider Internal Medicine
DX: J40 Bronchitis, not specified as acute or chronic (principal)

== ENCOUNTER → 2025-04-02 16:40 | Outpatient (BNVA) | payer BC, SELFPAY | PROVIDERS: PCP Internal Medicine; Visit Provider Internal Medicine | DX: J40 Bronchitis, not specified as acute or chronic (principal); O09.522 Supervision of elderly multigravida, second trimester | CPT/HCPCS: 96127 ==